=== PATIENT | female | born 1965 | race African-American/Black ===

== ENCOUNTER 2018-06-05 00:20 | Inpatient (IN) | payer OTHER ==
--- NOTE | 2018-06-05 00:27 | PDOC ---
History of Present Illness - General History Source: Patient Exam Limitations: No Limitations - History of Present Illness Initial Comments: 06/05/18 01:15 The patient is a 52 year old female, with a significant past medical history of HTN, prediabetes, and pituitary tumor (diagnosed 34 years ago), who presents to the emergency department with, 1 week of right sided facial numbness. As per patient, her symptoms were sudden onset and is described as decreased sensation , right sided headache, and elevated blood pressure. 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 The patient reports calling a family member who has had a stroke in the past and a nurse from her insurance company who advised her to report to the ED, subsequently the patient notes increased anxiety since that phone call. She denies any recent head trauma or loss of sensation to the extremities. She denies any recent change in vision. She denies recent fevers, chills, or dizziness. She denies recent nausea, vomit, diarrhea or constipation. She denies recent dysuria, frequency, urgency or hematuria. She denies recent chest pain or shortness of breath. Allergies: NKA Social history: Nonsmoker. Denies EtOH use and recreational drug use. Neurologist: Dr. Guo <Charlie Cruz - Last Filed: 06/05/18 01:15> <Izzy Wynne - Last Filed: 06/05/18 03:30> - General Chief Complaint: CVA/TIA Stated Complaint: SYMPTOMS OF STROKE Time Seen by Provider: 06/05/18 00:27 Past History <Charlie Cruz - Last Filed: 06/05/18 01:15> - Suicide/Smoking/Psychosocial Hx Smoking History: Never smoked Have you smoked in the past 12 months: No Information on smoking cessation initiated: No Hx Alcohol Use: No Drug/Substance Use Hx: No <Izzy Wynne - Last Filed: 06/05/18 03:30> - Past Medical History Allergies/Adverse Reactions: Allergies Allergy/AdvReac Type Severity Reaction Status Date / Time No Known Allergies Allergy Verified 06/05/18 00:24 Review of Systems - Review of Systems Able to Perform ROS?: Yes Comments:: 06/05/18 01:16 +GENERAL/CONSTITUTIONAL: Elevated blood pressure.No fever or chills. No weakness. HEAD, EYES, EARS, NOSE AND THROAT: No change in vision. No ear pain or discharge. No sore throat. CARDIOVASCULAR: No chest pain or shortness of breath. RESPIRATORY: No cough, wheezing, or hemoptysis. GASTROINTESTINAL: No nausea, vomiting, diarrhea or constipation. GENITOURINARY: No dysuria, frequency, or change in urination. MUSCULOSKELETAL: No joint or muscle swelling or pain. No neck or back pain. SKIN: No rash +NEUROLOGIC: Right facial numbness. Right sided headache.No vertigo or loss of consciousness ENDOCRINE: No increased thirst. No abnormal weight change. HEMATOLOGIC/LYMPHATIC: No anemia, easy bleeding, or history of blood clots. ALLERGIC/IMMUNOLOGIC: No hives or skin allergy. All Other Systems: Reviewed and Negative <Charlie Cruz - Last Filed: 06/05/18 01:15> *Physical Exam - Vital Signs Last Vital Signs Temp Pulse Resp BP Pulse Ox 98.7 F 78 20 164/73 97 06/05/18 00:24 06/05/18 00:24 06/05/18 00:24 06/05/18 00:24 06/05/18 00:24 - Physical Exam Comments: 06/05/18 01:16 GENERAL: Awake, alert, and fully oriented, in no acute distress HEAD: No signs of trauma EYES: Left eye not blinking simultaneously with right eye. sclera anicteric, conjunctiva clear ENT: Auricles normal inspection, hearing grossly normal, nares patent, oropharynx clear without exudates. Moist mucosa NECK: Normal ROM, supple, no lymphadenopathy, JVD, or masses LUNGS: Breath sounds equal, clear to auscultation bilaterally. No wheezes, and no crackles HEART: Regular rate and rhythm, normal S1 and S2, no murmurs, rubs or gallops ABDOMEN: Soft, nontender, normoactive bowel sounds. No guarding, no rebound. No masses EXTREMITIES: Normal range of motion, no edema. No clubbing or cyanosis. No cords, erythema, or tenderness +NEUROLOGICAL: weaker left eye, able to open when forced closed. Left sided facial palsy preserving the forehead. Normal speech. . No motor deficits in the in face, upper extremities and lower extremities. No pronator drift. Normoreflexic in the upper and lower extremities. SKIN: Warm, Dry, normal turgor, no rashes or lesions noted. <BrynmichellewilliamCharlie - Last Filed: 06/05/18 01:15> - Vital Signs Last Vital Signs Temp Pulse Resp BP Pulse Ox 98.7 F 78 20 164/73 97 06/05/18 00:24 06/05/18 00:24 06/05/18 00:24 06/05/18 00:24 06/05/18 00:24 <Izzy Wynne - Last Filed: 06/05/18 03:30> NIH Stroke Scale - Last Known Well Date/Time & Onset Date Last Known Well: 05/29/18 Time Last Known Well: 00:00 - Initial Evaluation Level of consciousness: Alert Ask patient the month and their age: Answers both correctly Ask patient to open & close eyes; make fist and let go: Obeys both correctly Best gaze (horizontal eye movement): Normal Visual field testing: No visual field loss Facial paresis (Show teeth/raise eyebrows/close eyes tight): Minor paralysis ( flattened nasolabial fold, asymmetry on smiling) Motor Function: Left Arm: Normal Motor Function: Right Arm: Normal (extends arm 90 (or 45) degrees for 10 seconds without drift Motor Function: Left Leg: Normal (extends leg 30 degrees for 5 seconds without drift) Motor Function: Right Leg: Normal (extends leg 30 degrees for 5 seconds without drift) Limb Ataxia: No ataxia Sensory(Use pinprick test arms,legs,trunk,face/side to side): Normal Best language (Describe picture, name items, read sentences): No Aphasia Dysarthria (read several words): Normal articulation Extinction and Inattention: No abnormality - Total Score NIH Stroke Scale Score: 1 <Izzy Wynne - Last Filed: 06/05/18 03:30> Heart Score/ECG Review - History History: Slightly suspicious - Electrocardiogram EKG: Non specific repolarization disturbance - Age Age: 45-65 - Risk Factors Risk Factors Heart Score: Yes Hx Hypertension, Yes Hx Diabetes (borderline HTN/ DM) - Troponin Troponin: </= normal limit - ECG Intrepretation Rhythm: Regular Rhythm - Lancaster Lancaster: Normal - ST and T Early Repolarization: No Non Specific ST-T Wave changes: Yes Flattened T Waves: Yes - ECG Impressions Ischemic Changes: Yes <Izzy Wynne - Last Filed: 06/05/18 03:30> Critical Care Time/MDM Note - Medical Decision Making Note: 06/05/18 00:57 CBC normal <Izzy Wynne - Last Filed: 06/05/18 03:30> Discharge Disposition <Charlie Cruz - Last Filed: 06/05/18 01:15> - Discharge Dispostion Decision to Admit order: Yes <Izzy Wynne - Last Filed: 06/05/18 03:30> - Diagnosis Facial weakness, Facial numbness - Discharge Dispostion Condition at time of disposition: Fair - Referrals Referrals: Juan Luis Guo MD [Primary Care Provider] - - Patient Instructions - Post Discharge Activity Attestations - Attestations 06/05/18 01:16 Documentation prepared by Charlie Cruz, acting as medical associate for Izzy Wynne MD. <Charlie Cruz - Last Filed: 06/05/18 01:15>
[2018-06-05 00:53] LABS: BASO % 1.2 % (0-2.0); EOS % 2.6 % (0-4.5); HEMATOCRIT 38.9 % (32.4-45.2); HEMOGLOBIN 12.5 GM/dL (10.7-15.3); LYMPH % 28.8 % (8-40); MCH 24.4 pg (25.7-33.7); MCHC 32.1 g/dl (32.0-36.0); MEAN CELL VOLUME 75.9 fl (80-96); MEAN PLT VOLUME 9.2 fl (7.5-11.1); NEUT % 61.4 % (42.8-82.8); PLATELET COUNT 247 K/MM3 (134-434); RBC 5.12 M/mm3 (3.60-5.2); RDW 31.5 % (11.6-15.6); WHITE BLOOD COUNT 8.2 K/mm3 (4.0-10.0)
[2018-06-05 00:55] LABS: ADD RBC MORPHOLOGY YES
[2018-06-05 01:32] LABS: INR 0.98 (0.83-1.09); PROTHROMBIN TIME (PATIENT) 11.6 SEC (9.7-13.0)
[2018-06-05 01:46] LABS: ALBUMIN 3.9 g/dl (3.4-5.0); ALK PHOS 82 U/L (45-117); ANION GAP 8 MMOL/L (8-16); BILIRUBIN,TOTAL 0.2 mg/dL (0.2-1); BLOOD UREA NITROGEN 12 mg/dL (7-18); CALCIUM 9.2 mg/dL (8.5-10.1); CHLORIDE 111 mmol/L (98-107); CO2 24 mmol/L (21-32); CREATININE 0.7 mg/dL (0.55-1.3); GLUCOSE,RANDOM 106 mg/dL (74-106); POTASSIUM 3.7 mmol/L (3.5-5.1); SGOT/AST 21 U/L (15-37); SGPT/ALT 28 U/L (13-61); SODIUM 143 mmol/L (136-145); TOT PROT 8.2 g/dl (6.4-8.2)
[2018-06-05 02:07] LABS: ANISOCYTOSIS 2+; MACROCYTOSIS 0; PLATELET ESTIMATE NORMAL
--- NOTE | 2018-06-05 02:16 | PN ---
Teaching Attending Note Name of Resident: Pat Salgado ATTENDING PHYSICIAN STATEMENT I saw and evaluated the patient. I reviewed the resident's note and discussed the case with the resident. I agree with the resident's findings and plan as documented. SUBJECTIVE: Patient is a 52 year old woman with a PMH of HTN, prediabetes, and pituitary tumor (diagnosed 34 years ago), who presents to the ER with 1 week of right sided facial numbness. She says her symptoms were sudden onset and is described as decreased sensation, right sided headache, and elevated blood pressure. She has also noticed numbness of her lips when she is putting on lips stick. 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 The patient reports calling a family member who has had a stroke in the past and a nurse from her insurance company who advised her to report to the ER, subsequently the patient notes increased anxiety since that phone call. She denies any recent head trauma, loss of sensation to the extremities or any recent change in vision. Also has had "intermittent" hypertension which has not been treated. Has not followed up with her MD for the pituitary tumor in 5.5 months. OBJECTIVE: Alert and anxious Vital Signs Period Temp Pulse Resp BP Sys/Carvalho Pulse Ox Last 24 Hr 98.7 F 76-78 20 164/73 97-100 HEENT: No Jaundice, eye redness or discharge, dialted right pupil; ptosis right eye; EOMI. Normocephalic, atraumatic. External ears are normal and hearing is grossly intact. No nasal discharge. Diminished sensation right side of face. Neck: Supple, nontender. No palpable adenopathy or thyromegaly. No JVD Chest: Good effort. Clear to auscultation and percussion. Heart: Regular. No S3, rub or murmur Abdomen: Not distended, soft, nontender and no HSM. No rebound or guarding. Normoactive bowel sounds. Ext: Peripheral pulses intact. No leg edema. Skin: Warm and dry. No petechiae, rash or ecchymosis. Neuro: Alert. Oriented x3. CN 2-12 grossly intact. Diminished sensation right side of face and RUE; DTR are symmetric and plantar reflexes are flexor. Abnormal Lab Results 06/05/18 06/05/18 00:45 00:45 MCV 75.9 L MCH 24.4 L RDW 31.5 H Chloride 111 H ASSESSMENT AND PLAN: 1. CVA - Findings consistent with a left side infarct. Head CT scan does not show any acute pathology. Patient outside the window for TPA. Will get a brain MRI/MRA, carotid doppler, ECHO, fasting lipids, swallow evaluation, PT and Neurology consults. Implement fall precautions and permissive hypertension; treat with aspirin and lipitor. 2. DVT prophylaxis - Lovenox 40 mg SQ q 24 hours. 3. Advance directives - Full code
--- NOTE | 2018-06-05 03:07 | HP ---
CHIEF COMPLAINT: right-sided facial weakness PCP: HISTORY OF PRESENT ILLNESS: Patient is a 52 year old female with past medical history of pituitary tumor ( Prolactinoma) and HTN, presented with sudden-onset right sided facial weakness since one week ago. Patient reported that about one week ago, patient just suddenly felt numb on the right side of her face, accompanied by right-sided headache. The headache was intermittent, but the numbness was persistent. She described it "like having anesthesia during a dental procedure". Today, her co- workers noted that "something was different with her eyes and her face". Patient got worried, and came to the ED. She denies any head trauma, changes in vision, chest pain, SOB, palpitations, dizziness, or weakness. Denies fevers, chills, abdominal pain, diarrhea, constipation. ER course was notable for: (1)Head CT - no acute intracranial pathology (2)BP 164/73 Recent Travel:denies any recent travel PAST MEDICAL HISTORY: -Prolactinoma -Hypertension PAST SURGICAL HISTORY: none Social History: Smoking:nonsmoker Alcohol:occasional EtOH drinker Drugs: denies illicit drug use Family History: Allergies No Known Allergies Allergy (Verified 06/05/18 00:24) HOME MEDICATIONS: REVIEW OF SYSTEMS CONSTITUTIONAL: Absent: fever, chills, diaphoresis, generalized weakness, malaise, loss of appetite, weight change HEENT: Absent: rhinorrhea, nasal congestion, throat pain, throat swelling, difficulty swallowing, mouth swelling, ear pain, eye pain, visual changes CARDIOVASCULAR: Absent: chest pain, syncope, palpitations, irregular heart rate, lightheadedness , peripheral edema RESPIRATORY: Absent: cough, shortness of breath, dyspnea with exertion, orthopnea, wheezing, stridor, hemoptysis GASTROINTESTINAL: Absent: abdominal pain, abdominal distension, nausea, vomiting, diarrhea, constipation, melena, hematochezia GENITOURINARY: Absent: dysuria, frequency, urgency, hesitancy, hematuria, flank pain, genital pain MUSCULOSKELETAL: Absent: myalgia, arthralgia, joint swelling, back pain, neck pain SKIN: Absent: rash, itching, pallor HEMATOLOGIC/IMMUNOLOGIC: Absent: easy bleeding, easy bruising, lymphadenopathy, frequent infections ENDOCRINE: Absent: unexplained weight gain, unexplained weight loss, heat intolerance, cold intolerance NEUROLOGIC: headache, focal weakness or paresthesias Absent:dizziness, unsteady gait, seizure, mental status changes, bladder or bowel incontinence PSYCHIATRIC: Absent: anxiety, depression, suicidal or homicidal ideation, hallucinations. PHYSICAL EXAMINATION Vital Signs - 24 hr 06/05/18 06/05/18 00:24 01:37 Temperature 98.7 F Pulse Rate 78 76 Respiratory 20 Rate Blood Pressure 164/73 O2 Sat by Pulse 97 100 Oximetry (%) GENERAL: Awake, alert, and fully oriented, in no acute distress. HEAD: Normal with no signs of trauma. EYES:PERRLA, EOMI, sclera anicteric, conjunctiva clear. EARS, NOSE, THROAT: Ears normal, nares patent, oropharynx clear without exudates. Moist mucous membranes. NECK: Normal range of motion, supple without lymphadenopathy, JVD, or masses. LUNGS: Breath sounds equal, clear to auscultation bilaterally. HEART: Regular rate and rhythm, normal S1 and S2 without murmur, rub or gallop. ABDOMEN: Soft, nontender, not distended, normoactive bowel sounds. MUSCULOSKELETAL: Normal range of motion at all joints. No bony deformities or tenderness. No CVA tenderness. UPPER EXTREMITIES: 2+ pulses, warm, well-perfused. No cyanosis. No clubbing. No peripheral edema. LOWER EXTREMITIES: 2+ pulses, warm, well-perfused. No calf tenderness. No peripheral edema. NEUROLOGICAL: AAOx3, CN II-XII grossly intact except V and VII; +diminished sensation on right side of face and arm, +Right eye closes tighter than the left eye. Normal speech. Normal gait. PSYCHIATRIC: Cooperative. Good eye contact. Appropriate mood and affect. SKIN: Warm, dry, normal turgor, no rashes or lesions noted, normal capillary refill. Laboratory Results - last 24 hr 06/05/18 06/05/18 00:45 00:45 WBC 8.2 RBC 5.12 Hgb 12.5 Hct 38.9 MCV 75.9 L MCH 24.4 L MCHC 32.1 RDW 31.5 H Plt Count 247 MPV 9.2 Absolute Neuts (auto) 5.0 Neutrophils % 61.4 Lymphocytes % 28.8 Monocytes % 6.0 Eosinophils % 2.6 Basophils % 1.2 Nucleated RBC % 0 Hypochromia 0 Platelet Estimate Normal Polychromasia 0 Poikilocytosis 1+ Anisocytosis 2+ Microcytosis 2+ Macrocytosis 0 Sodium 143 Potassium 3.7 Chloride 111 H Carbon Dioxide 24 Anion Gap 8 BUN 12 Creatinine 0.7 Creat Clearance w eGFR > 60 Random Glucose 106 Calcium 9.2 Total Bilirubin 0.2 AST 21 ALT 28 Alkaline Phosphatase 82 Creatine Kinase 102 Troponin I < 0.02 Total Protein 8.2 Albumin 3.9 ASSESSMENT/PLAN: Patient is a 52 year old female with past medical history of pituitary tumor and HTN, presented with sudden-onset right sided facial weakness since one week ago. #Right-sided facial weakness: likely 2/2 to CVA -Patient reports 1 week history of facial weakness, therefore not a candidate for TPA -Head CT does not show any acute pathology -MRI/MRA of the brain ordered. -Carotid doppler -Echocardiogram -Lipid profile -Aspirin 81mg started -Will treat with Lipitor once with lipid panel results -Physical therapy -Neurology (Dr. Guo) consulted. -Fall precautions #Hypertension -Patient not on any anti-hypertensive medications -Will hold treatment for now -Permissive hypertension #Pituitary adenoma -Continue home medications Cabergoline and Topiramate #FEN -Not on any standing fluids -Encourage increased oral fluid intake -Sodium restricted diet. #Prophylaxis -Lovenox 40mg sq qd #Disposition -full code -admit to obs Visit type - Emergency Visit Emergency Visit: Yes ED Registration Date: 06/05/18 Care time: The patient presented to the Emergency Department on the above date and was hospitalized for further evaluation of their emergent condition. - New Patient This patient is new to me today: Yes Date on this admission: 06/05/18 - Critical Care Critical Care patient: No
[2018-06-05 03:47] LABS: URINE APPEARANCE CLOUDY; URINE BILIRUBIN NEGATIVE (<2.0 mg/dL); URINE COLOR LTYELLOW; URINE GLUCOSE (UA) NEGATIVE (NEGATIVE); URINE KETONE NEGATIVE (NEGATIVE); URINE LEUK ESTERASE TRACE (NEGATIVE); URINE NITRITE NEGATIVE (NEGATIVE); URINE PROTEIN NEGATIVE (NEGATIVE); URINE UROBILINOGEN NEGATIVE mg/dL (0.2-1.0)
[2018-06-05 04:18] LABS: AMORP URATES 2+ /hpf (NONE SEEN)
[2018-06-05] MEDS ORDERED: HEPARIN NA (PORCINE) 5,000 UNITS/ML 1ML VIAL SQ SCH (06:00)
[2018-06-05 07:02] LABS: HEMATOCRIT 37.1 % (32.4-45.2); HEMOGLOBIN 11.6 GM/dL (10.7-15.3); MCH 23.8 pg (25.7-33.7); MCHC 31.4 g/dl (32.0-36.0); MEAN CELL VOLUME 75.8 fl (80-96); MEAN PLT VOLUME 9.2 fl (7.5-11.1); PLATELET COUNT 209 K/MM3 (134-434); RDW 31.4 % (11.6-15.6); WHITE BLOOD COUNT 7.3 K/mm3 (4.0-10.0)
[2018-06-05 07:07] LABS: ALBUMIN 3.5 g/dl (3.4-5.0); ALK PHOS 73 U/L (45-117); ANION GAP 7 MMOL/L (8-16); BILIRUBIN,TOTAL 0.3 mg/dL (0.2-1); BLOOD UREA NITROGEN 10 mg/dL (7-18); CALCIUM 9.4 mg/dL (8.5-10.1); CHLORIDE 114 mmol/L (98-107); CO2 23 mmol/L (21-32); CREATININE 0.6 mg/dL (0.55-1.3); GLUCOSE,RANDOM 98 mg/dL (74-106); MAGNESIUM 2.3 mg/dL (1.8-2.4); POTASSIUM 3.2 mmol/L (3.5-5.1); SGOT/AST 12 U/L (15-37); SGPT/ALT 24 U/L (13-61); SODIUM 143 mmol/L (136-145); TOT PROT 7.2 g/dl (6.4-8.2)
[2018-06-05 09:08] LABS: CHOLESTEROL 174 mg/dL (50-200); HDL CHOLESTEROL 57 mg/dL (40-60); TRIGLYCERIDES 144 mg/dL (0-150)
[2018-06-05] MEDS ORDERED: ASPIRIN 81 MG CHEWABLE TABLETS PO SCH (10:00)
[2018-06-05] MEDS: ENOXAPARIN NA (PORCINE) 40 MG/0.4 ML DISP.SYRIN SQ SCH (10:40)
--- NOTE | 2018-06-05 16:55 | EKG ---
Test Reason : Blood Pressure : / mmHG Vent. Rate : 076 BPM Atrial Rate : 076 BPM P-R Int : 118 ms QRS Dur : 066 ms QT Int : 386 ms P-R-T Axes : 002 -12 -13 degrees QTc Int : 434 ms NORMAL SINUS RHYTHM NONSPECIFIC ST AND T WAVE ABNORMALITY ABNORMAL ECG NO PREVIOUS ECGS AVAILABLE BASELINE ARTIFACT Confirmed by VALENTINE BAIRD, YAA ([id number]) on 06/05/2018 4:54:25 PM Referred By: Confirmed By:YAA GRIJALVA MD
--- NOTE | 2018-06-05 17:46 | HOSP ---
Subjective - Review of Symptoms Subjective: continues to have complete R face numbness for 1 week. notes her smile seems off and when she brushes her teeth she cant control her secretions but is able to eat and drink without difficulty. also when putting on lipstick her lips feel numb. denies Cp, SOB, fever, chills, N/V/C/D. stopped taking her topamax for several months but restarted it a month ago. does not take any other medications. stopped taking cabergoline about 3 months ago because she did not want to take it anymore Current Medications Generic Name Dose Route Start Last Admin Trade Name Fawn PRN Reason Stop Dose Admin Aspirin 81 mg 06/05/18 10:00 06/05/18 10:40 Asa - PO 81 mg DAILY JIM Administration Enoxaparin Sodium 40 mg 06/05/18 10:00 06/05/18 10:40 Lovenox - SQ 40 mg DAILY JIM Administration Last Vital Signs Temp Pulse Resp BP Pulse Ox 98.2 F 68 20 136/82 100 06/05/18 13:50 06/05/18 13:50 06/05/18 13:50 06/05/18 13:50 06/05/18 13:50 General mildly anxious Neuro smile is asymmetrical but no facial droop is appreciated. decreased sensation to the whole R side of the face including forehead. decreased sensation of the RUE. strength is equal in all 4 extremities. sensation intact everywhere else. CBCD WBC 7.3 K/mm3 (4.0-10.0) 06/05/18 06:05 RBC 4.90 M/mm3 (3.60-5.2) 06/05/18 06:05 Hgb 11.6 GM/dL (10.7-15.3) 06/05/18 06:05 Hct 37.1 % (32.4-45.2) 06/05/18 06:05 MCV 75.8 fl (80-96) L 06/05/18 06:05 MCHC 31.4 g/dl (32.0-36.0) L 06/05/18 06:05 RDW 31.4 % (11.6-15.6) H 06/05/18 06:05 Plt Count 209 K/MM3 (134-434) 06/05/18 06:05 MPV 9.2 fl (7.5-11.1) 06/05/18 06:05 CMP Sodium 143 mmol/L (136-145) 06/05/18 06:05 Potassium 3.2 mmol/L (3.5-5.1) L 06/05/18 06:05 Chloride 114 mmol/L (98-107) H 06/05/18 06:05 Carbon Dioxide 23 mmol/L (21-32) 06/05/18 06:05 Anion Gap 7 MMOL/L (8-16) L 06/05/18 06:05 BUN 10 mg/dL (7-18) 06/05/18 06:05 Creatinine 0.6 mg/dL (0.55-1.3) 06/05/18 06:05 Creat Clearance w eGFR > 60 (>60) 06/05/18 06:05 Calcium 9.4 mg/dL (8.5-10.1) 06/05/18 06:05 Total Bilirubin 0.3 mg/dL (0.2-1) 06/05/18 06:05 AST 12 U/L (15-37) L 06/05/18 06:05 ALT 24 U/L (13-61) 06/05/18 06:05 Alkaline Phosphatase 73 U/L (45-117) 06/05/18 06:05 Total Protein 7.2 g/dl (6.4-8.2) 06/05/18 06:05 Albumin 3.5 g/dl (3.4-5.0) 06/05/18 06:05 A/P 52yo F with PMH pituitary tumor, pre-diabetic presented to the ER with R facial numbness x1 week 1. R facial numbness- possible due to topamax? vs other etiology. topamax can cause parathesia but unclear if it presents in this fashion. will check TSH, vitamin B12 and lyme. MRI/MRA negative for CVA. neuro consulted. will hold topamax at this time(was taking it for weight loss?). pt does NOT have HTN noted here in the hospital. although HTN can present with perioral numbness she has not demonstrated HTN here. d/c asa 2. Pituitary tumor- stopped taking medications. encouraged her to follow up with retention specialist to re-start medications 3. pre-DM- random glucose here is fine. cont diet control and f/u with PMD as outpatient 4. obesity- BMI 25. Lifestyle modifications for weight loss 5. DVT ppx- lovenox Physical Examination Vital Signs: Vital Signs Temperature 98.2 F 06/05/18 13:50 Pulse Rate 68 06/05/18 13:50 Respiratory Rate 20 06/05/18 13:50 Blood Pressure 136/82 06/05/18 13:50 O2 Sat by Pulse Oximetry (%) 100 06/05/18 13:50 Labs: CBC, BMP 06/05/18 06:05 06/05/18 06:05
[2018-06-05 19:57] VITALS: BMI 33.5
--- NOTE | 2018-06-06 08:16 | PN ---
Physical Exam: SUBJECTIVE: Patient seen and examined OBJECTIVE: Vital Signs Period Temp Pulse Resp BP Sys/Carvalho Pulse Ox Last 24 Hr 97.6 F-99.2 F 65-88 16-20 136-158/79-95 98-100 GENERAL: The patient is awake, alert, and fully oriented, in no acute distress. HEAD: Normal with no signs of trauma. EYES: PERRL, extraocular movements intact, sclera anicteric, conjunctiva clear. No ptosis. ENT: Ears normal, nares patent, oropharynx clear without exudates, moist mucous membranes. NECK: Trachea midline, full range of motion, supple. LUNGS: Breath sounds equal, clear to auscultation bilaterally, no wheezes, no crackles, no accessory muscle use. HEART: Regular rate and rhythm, S1, S2 without murmur, rub or gallop. ABDOMEN: Soft, nontender, nondistended, normoactive bowel sounds, no guarding, no rebound, no hepatosplenomegaly, no masses. EXTREMITIES: 2+ pulses, warm, well-perfused, no edema. NEUROLOGICAL: Cranial nerves II through XII grossly intact. Normal speech, gait not observed. PSYCH: Normal mood, normal affect. SKIN: Warm, dry, normal turgor, no rashes or lesions noted Laboratory Results - last 24 hr 06/05/18 06/05/18 06:05 19:09 Sodium 143 Potassium 3.2 L Chloride 114 H Carbon Dioxide 23 Anion Gap 7 L BUN 10 Creatinine 0.6 Creat Clearance w eGFR > 60 Random Glucose 98 Calcium 9.4 Phosphorus 4.0 Magnesium 2.3 Total Bilirubin 0.3 AST 12 L ALT 24 Alkaline Phosphatase 73 Total Protein 7.2 Albumin 3.5 Triglycerides 144 Cholesterol 174 Total LDL Cholesterol 108 H HDL Cholesterol 57 Vitamin B12 532 TSH 1.63 Active Medications Generic Name Dose Route Start Last Admin Trade Name Freq PRN Reason Stop Dose Admin Enoxaparin Sodium 40 mg 06/05/18 10:00 06/05/18 10:40 Lovenox - SQ 40 mg DAILY JIM Administration ASSESSMENT/PLAN:
[2018-06-06] MEDS: ENOXAPARIN NA (PORCINE) 40 MG/0.4 ML DISP.SYRIN SQ SCH (10:11)
[2018-06-06] MEDS ORDERED: amLODIPine BESYLATE 5 MG TABLET (FP) PO SCH (12:45)
--- NOTE | 2018-06-06 12:56 | DS ---
Physical Exam: SUBJECTIVE: Patient seen and examined in the AM. She says her facial numbness and weakness is greatly improved from admission OBJECTIVE: Vital Signs Period Temp Pulse Resp BP Sys/Carvalho Pulse Ox Last 24 Hr 98.2 F-99.2 F 65-88 18-20 136-158/79-95 98-100 PHYSICAL EXAM GENERAL: The patient is awake, alert, and fully oriented, in no acute distress. HEAD: Normal with no signs of trauma. EYES: PERRL, extraocular movements intact, sclera anicteric, conjunctiva clear. ENT: Ears normal, nares patent, oropharynx clear without exudates, moist mucous membranes. NECK: Trachea midline, full range of motion, supple. LUNGS: CTA b/l, no rhonchi or wheezes HEART: Regular rate and rhythm, S1, S2 without murmur, rub or gallop. ABDOMEN: Soft, nontender, nondistended, normoactive bowel sounds EXTREMITIES: 2+ pulses, warm, well-perfused, no edema. NEUROLOGICAL: Cranial nerves II through XII intact. 5/5 strength in all extremities. Normal speech, gait not observed. LABS Laboratory Results - last 24 hr 06/05/18 19:09 Vitamin B12 532 TSH 1.63 IMAGING: Head CT: Questionable asmmetric soft tissue prominence in left lateral aspect of sella turcica. Brain MRI: Minimal asymmetric prominence of left side of the pituitary Brain MRA: No evidence of focal stenosis, aneurysm, or avm within central circulation Carotid Doppler: No evidence of stenosis significant for hemodynamic instability HOSPITAL COURSE: Date of Admission:06/05/18 Date of Discharge: 06/06/18 Patient is a 52 year old female with past medical history of pituitary tumor ( Prolactinoma) and HTN, presented with sudden-onset right sided facial weakness since one week ago. Patient reported that about one week ago, patient just suddenly felt numb on the right side of her face, accompanied by right-sided headache. The headache was intermittent, but the numbness was persistent. She described it "like having anesthesia during a dental procedure". Today, her co- workers noted that "something was different with her eyes and her face". Patient got worried, and came to the ED. She denies any head trauma, changes in vision, chest pain, SOB, palpitations, dizziness, or weakness. Denies fevers, chills, abdominal pain, diarrhea, constipation. She was noted to be on outpatient Topiramate which could possibly be causing her numbness. Pt had not taken it in a few days and it was not restarted on admission. CVA r/o imaging was performed as above and was negative other than chronic pituitary tumor which is known. Pt not currently on medications as she states she does not want to take it. Encouraged patient to follow up with neurology and restart her medications. She was deemed medically safe for discharge and instructed to follow up with her PCP within one week. Minutes to complete discharge: 38 Discharge Summary Reason For Visit: NUMBNESS OF FACE,FACIAL WEAKNESS Condition: Good - Instructions Diet, Activity, Other Instructions: You were admitted with numbness and weakness in your face, which has now mostly resolved. Your Topiramate was held as it could be a possible cause of the facial numbness. A head CT and an MRI were done which ruled out a stroke, though your pituitary adenoma was noted on the imaging. It is important that you follow up with your neurologist in the office for management. You were started on a blood pressure medication Norvasc as your blood pressure was noted to be persistently elevated. A test was sent for lyme disease, which is unlikely as you have no known exposure, tick bites or rashes. However the result is not back yet. If the result returns and is positive, then someone will call and inform you as you would then need to be prescribed antibiotics for treatment. You should begin taking Norvasc 5 mg by mouth once daily. This medication has been sent to your pharmacy. Upon discharge you should stop taking the Topiramate. You should continue all of your other home medications as they were prescribed prior to admission to the hospital. You should follow up with your primary care physician within one week for blood pressure checks. They can decide whether to continue or change the new blood pressure medication. You should follow up with your neurologist within one week of discharge as well. Follow up with your writing center director for further treatment of your pituitary If you have worsening numbness or weakness in your face, arms, or legs, any loss of consciousness, or severe headache, you should call your doctor or return to the emergency department immediately. Referrals: Juan Luis Guo MD [Primary Care Provider] - Disposition: HOME - Home Medications Comprehensive Discharge Medication List: Ambulatory Orders Latanoprost 0.005% Eye Drops [Xalatan 0.005% Eye Drops -] 1 drop OU HS 06/05/18 Amlodipine Besylate [Norvasc -] 5 mg PO DAILY #30 tablet 06/06/18 This patient is new to me today: No Emergency Visit: Yes ED Registration Date: 06/05/18 Care time: The patient presented to the Emergency Department on the above date and was hospitalized for further evaluation of their emergent condition. Critical Care patient: No - Discharge Referral Referred to [facility] Med P.C.: No
--- NOTE | 2018-06-06 13:03 | PN ---
Teaching Attending Note Name of Resident: Nael Leonard ATTENDING PHYSICIAN STATEMENT I saw and evaluated the patient. I reviewed the resident's note and discussed the case with the resident. I agree with the resident's findings and plan as documented. SUBJECTIVE:states numbness has improved but persists around the lips. no longer experiencing in her arm. denies CP, SOB, fever, chills, N/V/C/D or gait difficulties OBJECTIVE: Last Vital Signs Temp Pulse Resp BP Pulse Ox 98.3 F 73 18 140/90 98 06/06/18 05:27 06/06/18 10:00 06/06/18 10:00 06/06/18 10:00 06/05/18 19:00 General NAD Neuro improved sensation on top half of face. decreased in the L buccal area and around the lips. motor strength is equal throughout ASSESSMENT AND PLAN: 52yo F with PMH pituitary tumor, pre-diabetic presented to the ER with R facial numbness x1 week 1. R facial numbness- possible due to topamax. spoke with Dr Palacios who states this is most likely due to topamax use. clinically improving. workup all negatiave. can f/u with neuro as outpatient 2. HTN- several elevated readings overnight. asymptomatic (numbness was not worse). will start norvasc 5mg. educated on low salt diet and excercise. f/u with PMD this week for repeat BP. 3. Pituitary tumor- stopped taking medications. encouraged her to follow up with value stream leader to discuss re-starting medications 4. pre-DM- random glucose here is fine. cont diet control and f/u with PMD as outpatient 5. obesity- BMI 25. Lifestyle modifications for weight loss 6. DVT ppx- lovenox 7. d/c home
[2018-06-06 14:24] VITALS: BP 155/89; PULSE 78; TEMP 98.4
== END 2018-06-06 14:38 | disposition home or self-care (01) | DRG 93 ==
LOC: JER 00:20 → JERBED 02:01 → J6S 19:44
PROVIDERS: ADMIT Internal Medicine; ATTEND Internal Medicine
DX: R20.0 Anesthesia of skin (principal); T42.6X5A Adverse effect of other antiepileptic and sedative-hypnotic drugs, initial encounter; I10 Essential (primary) hypertension; R73.03 Prediabetes; D35.2 Benign neoplasm of pituitary gland; E66.9 Obesity, unspecified; Z68.25 Body mass index [BMI] 25.0-25.9, adult
CPT/HCPCS: 36415; 70450-TC; 70544-TC; 70551-TC; 71046-TC-FY; 80053; 80061; 81003; 81015; 82550; 82607; 83721; 83735; 84100; 84443; 84484; 85025; 85027; 85610; 86618; 93005; 93010; 93880-TC; 99285-25

== ENCOUNTER 2018-06-22 01:25 | Emergency (ER) | payer OTHER ==
[2018-06-22 02:08] VITALS: BP 133/98; PULSE 98; TEMP 97.8; BMI 33.1
--- NOTE | 2018-06-22 02:52 | PDOC ---
History of Present Illness - General Chief Complaint: Headache Stated Complaint: PAIN, HEAD/NECK,RX REFILL Time Seen by Provider: 06/22/18 02:52 Past History - Past Medical History Allergies/Adverse Reactions: Allergies Allergy/AdvReac Type Severity Reaction Status Date / Time iodine Allergy Verified 06/22/18 02:09 Home Medications: Ambulatory Orders Latanoprost 0.005% Eye Drops [Xalatan 0.005% Eye Drops -] 1 drop OU HS 06/05/18 Amlodipine Besylate [Norvasc -] 5 mg PO DAILY #30 tablet 06/06/18 Topiramate [Topamax] 50 mg PO BID 06/22/18 COPD: No Diabetes: Yes (borderline HTN/DM) HTN: Yes - Suicide/Smoking/Psychosocial Hx Smoking History: Never smoked Have you smoked in the past 12 months: No Information on smoking cessation initiated: No Hx Alcohol Use: No Drug/Substance Use Hx: No Substance Use Type: None Hx Substance Use Treatment: No *Physical Exam - Vital Signs Last Vital Signs Temp Pulse Resp BP Pulse Ox 97.8 F 98 H 20 133/98 100 06/22/18 01:30 06/22/18 01:30 06/22/18 01:30 06/22/18 01:30 06/22/18 01:30 *DC/Admit/Observation/Transfer - Referrals Referrals: Arnulfo Quijano [Primary Care Provider] - - Patient Instructions - Post Discharge Activity
--- NOTE | 2018-06-22 03:55 | PDOC ---
History of Present Illness - General Chief Complaint: Headache Stated Complaint: PAIN, HEAD/NECK,RX REFILL Time Seen by Provider: 06/22/18 02:52 History Source: Patient Exam Limitations: No Limitations - History of Present Illness Initial Comments: 06/22/18 03:48 Best Contact: Dr. Guo/neurology PMD: Dr. Arnulfo Quijano/[facility] Dr. Logan/[facility] Pmhx: HTN, PreDM, Asthma/never intubated or recent admission, age 18 yo: Pituatary adenoma Pshx: Umbilical hernia with mesh, bilateral bunionectomy, at 17 years old and left breast lumpectomy: Benign Allergies: Iodine/short of breath Social Hx: Cigarettes/ 0 Alcohol/ 0 Drugs/0 LMP:N/A 52-year-old female presents to the emergency department requesting for a prescription refill on Cabergoline .5mg 1/2 tablet twice a week. Patient states she's had a left sided posterior headache radiating to the left side of her neck 2 weeks without fever, chills, dizziness, lightheadedness, facial pains, earache, sore throat, neck stiffness, back pains, chest pain, shortness of breath, abdominal pains, Durga numbness or tingling sensation. Patient states she saw her center medical director yesterday afternoon and asked him for a refill on the medication which her center medical director denied. [facility] states he will have to speak to the patient's neurologist prior to writing the prescription for her. Patient states since her center medical director did not raise of the medication, she decided to come to the ER for medication refill prescription. I informed the patient that I cannot write that medication and she needs to follow -up with her neurologist and center medical director for the prescription refill. Patient states she's had this type of headache on and off for years due to her pituitary adenoma. Patient states she is under the care of her center medical director. Patient states the pain is very low at the moment but only came to the ER for her medication refill that her neurologist and center medical director did not fill. Past History - Past Medical History Allergies/Adverse Reactions: Allergies Allergy/AdvReac Type Severity Reaction Status Date / Time iodine Allergy Verified 06/22/18 02:09 Home Medications: Ambulatory Orders Latanoprost 0.005% Eye Drops [Xalatan 0.005% Eye Drops -] 1 drop OU HS 06/05/18 Amlodipine Besylate [Norvasc -] 5 mg PO DAILY #30 tablet 06/06/18 Topiramate [Topamax] 50 mg PO BID 06/22/18 COPD: No Diabetes: Yes (borderline HTN/DM) HTN: Yes - Suicide/Smoking/Psychosocial Hx Smoking History: Never smoked Have you smoked in the past 12 months: No Information on smoking cessation initiated: No Hx Alcohol Use: No Drug/Substance Use Hx: No Substance Use Type: None Hx Substance Use Treatment: No Review of Systems - Review of Systems Able to Perform ROS?: Yes Comments:: 06/22/18 03:55 CONSTITUTIONAL: Absent: fever, chills, diaphoresis, generalized weakness, malaise, loss of appetite HEENT: Absent: rhinorrhea, nasal congestion, throat pain, throat swelling, difficulty swallowing, mouth swelling, ear pain, eye pain, visual Changes CARDIOVASCULAR: Absent: chest pain, loss of consciousness, palpitations, irregular heart rate, peripheral edema RESPIRATORY: Absent: cough, shortness of breath, dyspnea with exertion, orthopnea, wheezing, stridor, hemoptysis GASTROINTESTINAL: Absent: abdominal pain, abdominal distension, nausea, vomiting, diarrhea, constipation, melena, hematochezia GENITOURINARY: Absent: dysuria, frequency, urgency, hesitancy, hematuria, flank pain, genital pain MUSCULOSKELETAL: Absent: myalgia, arthralgia, joint swelling SKIN: Absent: rash, itching, pallor HEMATOLOGIC/IMMUNOLOGIC: Absent: easy bleeding, easy bruising, lymphadenopathy, frequent infections ENDOCRINE: Absent: unexplained weight gain, unexplained weight loss, heat intolerance, cold intolerance NEUROLOGIC: +left posterior don/left sided neck pain Absent: focal weakness or paresthesias, dizziness, unsteady gait, seizure, mental status changes, bladder or bowel incontinence PSYCHIATRIC: Absent: anxiety, depression, suicidal or homicidal ideation, hallucinations. Is the patient limited Cuban proficient: No *Physical Exam - Vital Signs Last Vital Signs Temp Pulse Resp BP Pulse Ox 97.8 F 98 H 20 133/98 100 06/22/18 01:30 06/22/18 01:30 06/22/18 01:30 06/22/18 01:30 06/22/18 01:30 - Physical Exam Comments: 06/22/18 03:56 GENERAL: Well developed, well nourished. Awake and alert. No acute distress. HEENT: Normocephalic, atraumatic. PERRLA, EOMI. No conjunctival pallor. Sclera are non- icteric. Moist mucous membranes. Oropharynx is clear. NECK: Supple. Full ROM. No JVD. Carotid pulses 2+ and symmetric, without bruits. No thyromegaly. No lymphadenopathy. CARDIOVASCULAR: Regular rate and rhythm. No murmurs, rubs, or gallops. Distal pulses are 2+ and symmetric. PULMONARY: No evidence of respiratory distress. Lungs clear to auscultation bilaterally. No wheezing, rales or rhonchi. ABDOMINAL: Soft. Non-tender. Non-distended. No rebound or guarding. No organomegaly. Normoactive bowel sounds. MUSCULOSKELETAL Normal range of motion at all joints. No bony deformities or tenderness. No CVA tenderness. EXTREMITIES: No cyanosis. No clubbing. No edema. No calf tenderness. SKIN: Warm and dry. Normal capillary refill. No rashes. No jaundice. NEUROLOGICAL: Alert, awake, appropriate. Cranial nerves 2-12 intact. No deficits to light touch and temperature in face, upper extremities and lower extremities. No motor deficits in the in face, upper extremities and lower extremities. Normoreflexic in the upper and lower extremities. Normal speech. Toes are down- going bilaterally. Gait is normal without ataxia. PSYCHIATRIC: Cooperative. Good eye contact. Appropriate mood and affect. ED Treatment Course - RADIOLOGY Radiograph Interpretation: 06/22/18 03:56 Patient adamantly refuses a CAT scan. Patient states she had an MRI 2 weeks ago. Progress Note - Progress Note Progress Note: 0354hrs: Called DR. Guo/[phone] Patient is comfortable in the emergency department. Patient was not wincing in any type of pain. Patient states she only wants a prescription refill and feels fine now. *DC/Admit/Observation/Transfer Diagnosis at time of Disposition: Encounter for medication refill Headache Qualifiers: Headache type: other headache syndrome Qualified Code(s): G44.89 - Other headache syndrome - Discharge Dispostion Disposition: HOME Condition at time of disposition: Stable Decision to Admit order: No - Referrals Referrals: Arnulfo Quijano [Primary Care Provider] - Juan Luis Guo MD [Staff Physician] - - Patient Instructions Printed Discharge Instructions: DI for Headache Additional Instructions: Follow-up with Dr. Guo, your neurologist. Return back to the emergency department for severe/persistent or worsening symptoms. You had your MRI 2 weeks ago and today declined any images/CAT scan. You were advised to follow with your neurologist for prescription refill/ Cabergoline .5mg take 1/2 pill twice a week. - Post Discharge Activity
== END 2018-06-22 04:28 | disposition home or self-care (01) ==
LOC: JER 01:25
DX: G44.89 Other headache syndrome (principal); M54.2 Cervicalgia; I10 Essential (primary) hypertension; E11.9 Type 2 diabetes mellitus without complications
CPT/HCPCS: 99281-25

== ENCOUNTER 2018-11-20 16:50 | Observation (INO) | payer OTHER ==
--- NOTE | 2018-11-20 17:44 | PDOC ---
History of Present Illness - General Chief Complaint: Lightheaded Stated Complaint: DIZZINESS Time Seen by Provider: 11/20/18 17:28 - History of Present Illness Initial Comments: 11/20/18 17:43 Ms. Castelan is a 53 yo female w/ pmh of HTN, Asthma, PreDM, and known tumor on pituitary gland who presents for evaluation of chest pain and dizziness. 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 Patient then reports she went to work and began to have lightheaded feeling that progressed to include the feeling like the world was spinning. Ms. Castelan reports she became nauseated at this time and elected to present to ER. Patient also reports she has had a 1 week history of "hemorrhoids acting up" due to straining from constipation and has noticed blood mixed in with stool during this time period. The patient denies shortness of breath, and headache. Denies fever, chills, nausea, vomit, and diarrhea. Denies dysuria, frequency, urgency and hematuria. Past History - Past Medical History Allergies/Adverse Reactions: Allergies Allergy/AdvReac Type Severity Reaction Status Date / Time iodine Allergy Verified 11/20/18 16:51 Home Medications: Ambulatory Orders Latanoprost 0.005% Eye Drops [Xalatan 0.005% Eye Drops -] 1 drop OU HS 06/05/18 Amlodipine Besylate [Norvasc -] 5 mg PO DAILY #30 tablet 06/06/18 Topiramate [Topamax] 50 mg PO BID 06/22/18 Cabergoline 0.25 mg PO BID 11/20/18 Cetirizine HCl [Zyrtec -] 10 mg PO DAILY PRN 11/20/18 COPD: No Diabetes: Yes (borderline HTN/DM) HTN: Yes - Immunization History Immunization Up to Date: Yes - Suicide/Smoking/Psychosocial Hx Smoking History: Never smoked Have you smoked in the past 12 months: No Information on smoking cessation initiated: No Hx Alcohol Use: No Drug/Substance Use Hx: No Substance Use Type: None Hx Substance Use Treatment: No Review of Systems - Review of Systems Comments:: 11/20/18 17:44 GENERAL/CONSTITUTIONAL: No fever or chills. No weakness. HEAD, EYES, EARS, NOSE AND THROAT: No change in vision. No ear pain or discharge. No sore throat. CARDIOVASCULAR: +Transient chest pain as described. No shortness of breath RESPIRATORY: No cough, wheezing, or hemoptysis. GASTROINTESTINAL: +Current nausea. 1 week of straining stools with blood noted. No vomiting or diarrhea. GENITOURINARY: No dysuria, frequency, or change in urination. MUSCULOSKELETAL: No joint or muscle swelling or pain. No neck or back pain. SKIN: No rash NEUROLOGIC: +Dizziness as described. No headache, loss of consciousness, or change in strength/sensation. ENDOCRINE: No increased thirst. No abnormal weight change HEMATOLOGIC/LYMPHATIC: No anemia, easy bleeding, or history of blood clots. ALLERGIC/IMMUNOLOGIC: No hives or skin allergy. *Physical Exam - Vital Signs Last Vital Signs Temp Pulse Resp BP Pulse Ox 97.9 F 78 16 144/80 100 11/20/18 16:51 11/20/18 16:51 11/20/18 16:51 11/20/18 16:51 11/20/18 16:51 - Physical Exam Comments: 11/20/18 17:44 GENERAL: Awake, alert, and fully oriented, in no acute distress HEAD: No signs of trauma, normocephalic, atraumatic EYES: PERRLA, EOMI, sclera anicteric, conjunctiva clear ENT: Auricles normal inspection, hearing grossly normal, nares patent, oropharynx clear without exudates. Moist mucosa NECK: Normal ROM, supple, no lymphadenopathy, JVD, or masses LUNGS: No distress, speaks full sentences, clear to auscultation bilaterally HEART: Regular rate and rhythm, normal S1 and S2, no murmurs, rubs or gallops, peripheral pulses normal and equal bilaterally. ABDOMEN: Soft, nontender, normoactive bowel sounds. No guarding, no rebound. No masses EXTREMITIES: Normal inspection, Normal range of motion, no edema. No clubbing or cyanosis. NEUROLOGICAL: Cranial nerves II through XII grossly intact. Normal speech, normal gait, no focal sensorimotor deficits SKIN: Warm, Dry, normal turgor, no rashes or lesions noted. RECTAL: +Hemorrhoids noted surrounding rectum, no blood noted on rectal exam Moderate Sedation - Procedure Monitoring Vital Signs: Procedure Monitoring Vital Signs Temperature 97.9 F 11/20/18 16:51 Pulse Rate 78 11/20/18 16:51 Respiratory Rate 16 11/20/18 16:51 Blood Pressure 144/80 11/20/18 16:51 O2 Sat by Pulse Oximetry (%) 100 11/20/18 16:51 Heart Score/ECG Review - History History: Highly suspicious - Electrocardiogram EKG: Non specific repolarization disturbance - Age Age: 45-65 - Risk Factors Risk Factors Heart Score: Yes Hx Hypertension, Yes Hx Diabetes, Yes Positive family hx of cardiac disease Based on the list above the patient has:: >/=3 risk factors or Hx atherosclerotic disease - Troponin Troponin: </= normal limit - Score Heart Score - Total: 6 ED Treatment Course - LABORATORY CBC & Chemistry Diagram: 11/20/18 18:06 11/20/18 18:42 Medical Decision Making - Medical Decision Making 11/20/18 21:00 Ms. Castelan is a 53 yo female w/ pmh as described who presents for evaluation of symptoms concerning for cardiac process vs. anemia vs. electrolyte imbalance. Patient evaluated with labs as below, EKG, Head CT, UA, and SFOB. Patient noted to have mild UTI as below and treated with 1g rocephin. Patient SFOB positive. Head CT negative. Given concerning history and patient family history with non- specific t-waves on EKG as well as positive SFOB, decision made to bring patient in for further cardiac evaluation. Admitting patient to hospitalist. Laboratory Results - last 24 hr 11/20/18 11/20/18 11/20/18 18:06 18:06 18:42 WBC 10.4 H RBC 4.42 Hgb 13.3 Hct 39.0 MCV 88.3 MCH 30.1 D MCHC 34.1 RDW 14.6 D Plt Count 251 D MPV 9.5 Absolute Neuts (auto) 8.7 H Neutrophils % 83.1 H D Lymphocytes % 12.5 D Monocytes % 3.4 L Eosinophils % 0.5 D Basophils % 0.5 Nucleated RBC % 0 Sodium 138 Potassium 3.7 Chloride 106 Carbon Dioxide 22 Anion Gap 10 BUN 13 Creatinine 0.9 Creat Clearance w eGFR 65.25 Random Glucose 144 H Calcium 9.0 Total Bilirubin 0.2 AST 17 ALT 22 Alkaline Phosphatase 95 Creatine Kinase 119 Troponin I < 0.02 Total Protein 8.2 Albumin 3.9 TSH 1.67 Urine Color Urine Appearance Urine pH Ur Specific [place] Urine Protein Urine Glucose (UA) Urine Ketones Urine Blood Urine Nitrite Urine Bilirubin Urine Urobilinogen Ur Leukocyte Esterase Urine WBC (Auto) Urine RBC (Auto) Urine Casts (Auto) U Epithel Cells (Auto) Urine Bacteria (Auto) Stool Occult Blood Positive 11/20/18 18:50 WBC RBC Hgb Hct MCV MCH MCHC RDW Plt Count MPV Absolute Neuts (auto) Neutrophils % Lymphocytes % Monocytes % Eosinophils % Basophils % Nucleated RBC % Sodium Potassium Chloride Carbon Dioxide Anion Gap BUN Creatinine Creat Clearance w eGFR Random Glucose Calcium Total Bilirubin AST ALT Alkaline Phosphatase Creatine Kinase Troponin I Total Protein Albumin TSH Urine Color Yellow Urine Appearance Turbid Urine pH 8.0 Ur Specific [place] 1.011 Urine Protein Negative Urine Glucose (UA) Negative Urine Ketones Negative Urine Blood Negative Urine Nitrite Negative Urine Bilirubin Negative Urine Urobilinogen 0.2 Ur Leukocyte Esterase Trace Urine WBC (Auto) 3 Urine RBC (Auto) 1 Urine Casts (Auto) 0 U Epithel Cells (Auto) 2.0 Urine Bacteria (Auto) 68.4 Stool Occult Blood *DC/Admit/Observation/Transfer Diagnosis at time of Disposition: Dizziness, Rectal bleed - Discharge Dispostion Decision to Admit order: Yes - Referrals Referrals: ON STAFF,NOT [Primary Care Provider] - - Patient Instructions - Post Discharge Activity
[2018-11-20] MEDS ORDERED: MECLIZINE HCL 25 MG TABLET (FP) PO ONE (18:08)
--- NOTE | 2018-11-20 18:46 | PDOC ---
Attending Attestation - HPI HPI: 11/20/18 18:49 The patient is a 53-year-old female with a past medical history significant for HTN, known tumor of the pituitary gland, pre-DM, and Asthma (never been intubated) presents to the emergency department with chest pain and dizziness. The patient reports she woke up at her usual state of health. The patient reports while at work she had a near syncopal episode associated with intermittent chest discomfort. The patient described the discomfort as severe sharp chest pain, denies any exertional factor. Denies shortness of breath. No prior stress test or echo. The patient reports a family history of [place]. Allergies: Iodine. Surgical history: Umbilical hernia with mesh, bilateral bunionectomy, at 17 years old and left breast lumpectomy: Benign Neurologist: Dr. Guo. PMD: Dr. Arnulfo Quijano. bumper operator: Dr. Logan. Family history: [place] (brother) - Physicial Exam PE: 11/20/18 18:50 GENERAL: Awake, alert, and fully oriented, in no acute distress HEAD: No signs of trauma EYES: PERRLA, EOMI, sclera anicteric, conjunctiva clear ENT: Auricles normal inspection, hearing grossly normal, nares patent.. Moist mucosa NECK: Normal ROM, supple, no JVD, or masses LUNGS: Breath sounds equal, clear to auscultation bilaterally. No wheezes, and no crackles HEART: Regular rate and rhythm, normal S1 and S2, no murmurs, rubs or gallops ABDOMEN: Soft, nontender. No guarding, no rebound. No masses EXTREMITIES: Normal range of motion, no edema. No clubbing or cyanosis. No cords, erythema, or tenderness NEUROLOGICAL: Cranial nerves II through XII grossly intact. Normal speech. SKIN: Warm, Dry, normal turgor, no rashes or lesions noted. - Medical Decision Making 11/20/18 18:50 Documentation prepared by Maru Hector, acting as front office medical assistant for Jose Solorzano MD. <Maru Hector - Last Filed: 11/20/18 18:49> - Resident Resident Name: Sukumar Davey - ED Attending Attestation I have performed the following: I have examined & evaluated the patient, The case was reviewed & discussed with the resident, I agree w/resident's findings & plan, Exceptions are as noted - Medical Decision Making 11/20/18 18:46 A portion of this note was documented by scribe services under my direction. I have reviewed the details of the note, within reason, and agree with the documentation with the following case summary and management plan written by me. Patient treated in the ED. Nursing notes are reviewed and incorporated into the medical decision-making. Vital signs reviewed. Peripheral IV access obtained by the nurse, laboratory studies are drawn and sent, reviewed and interpreted by myself. Vital Signs Temp Pulse Resp BP Pulse Ox 97.9 F 78 16 144/80 100 11/20/18 16:51 11/20/18 16:51 11/20/18 16:51 11/20/18 16:51 11/20/18 16:51 53-year-old female with past medical history of hypertension, asthma, prediabetes, pituitary gland tumor presents with chest pain and lightheadedness. The patient reported that she woke up this morning in her usual state health. While she was working, the patient felt near syncopal and had some intermittent chest discomfort described as several seconds of sharp chest pains. No shortness of breath. Nonexertional. However, the patient has strong family history of cardiac disease including a brother with an [place]. Never had a stress test or an echocardiogram. Denies smoking history. Given the circumstances, the patient will need a cardiac workup. This certainly could be atypical chest pain but given strong family history, and no wharf hand to follow up with, the patient should be admitted to the hospital for further management. <Jose Solorzano - Last Filed: 11/20/18 19:00> Heart Score/ECG Review #1 ECG reviewed & interpreted by me at: 17:00 11/20/18 19:00 NSR 75, nonspecific T wave abnormality, T wave flat III, avL, TWI V2, no std/melissa , QTC 426 msec <Jose Solorzano - Last Filed: 11/20/18 19:00>
[2018-11-20 18:49] LABS: BASO % 0.5 % (0-2.0); EOS % 0.5 % (0-4.5); HEMOGLOBIN 13.3 GM/dL (10.7-15.3); LYMPH % 12.5 % (8-40); MCH 30.1 pg (25.7-33.7); MCHC 34.1 g/dl (32.0-36.0); MEAN CELL VOLUME 88.3 fl (80-96); MEAN PLT VOLUME 9.5 fl (7.5-11.1); MONO % 3.4 % (3.8-10.2); NEUT % 83.1 % (42.8-82.8); PLATELET COUNT 251 K/MM3 (134-434); RBC 4.42 M/mm3 (3.60-5.2); RDW 14.6 % (11.6-15.6); WHITE BLOOD COUNT 10.4 K/mm3 (4.0-10.0)
[2018-11-20] MEDS ORDERED: MECLIZINE HCL 25 MG TABLET (FP) ONE (18:54)
[2018-11-20 19:03] LABS: URINE APPEARANCE TURBID; URINE BACTERIA 68.4 /hpf (NEGATIVE); URINE BILIRUBIN NEGATIVE (<2.0 mg/dL); URINE CASTS 0 /hpf (0-8); URINE COLOR YELLOW; URINE GLUCOSE (UA) NEGATIVE (NEGATIVE); URINE KETONE NEGATIVE (NEGATIVE); URINE LEUK ESTERASE TRACE (NEGATIVE); URINE NITRITE NEGATIVE (NEGATIVE); URINE PROTEIN NEGATIVE (NEGATIVE); URINE RBC 1 /hpf (0-4); URINE UROBILINOGEN 0.2 mg/dL (0.2-1.0); URINE WBC 3 /hpf (0-5)
[2018-11-20 19:32] LABS: ALBUMIN 3.9 g/dl (3.4-5.0); ALK PHOS 95 U/L (45-117); ANION GAP 10 MMOL/L (8-16); BILIRUBIN,TOTAL 0.2 mg/dL (0.2-1); BLOOD UREA NITROGEN 13 mg/dL (7-18); CHLORIDE 106 mmol/L (98-107); CO2 22 mmol/L (21-32); CREATININE 0.9 mg/dL (0.55-1.3); GLUCOSE,RANDOM 144 mg/dL (74-106); POTASSIUM 3.7 mmol/L (3.5-5.1); SGOT/AST 17 U/L (15-37); SGPT/ALT 22 U/L (13-61); SODIUM 138 mmol/L (136-145); TOT PROT 8.2 g/dl (6.4-8.2)
[2018-11-20] MEDS ORDERED: CEFTRIAXONE 1,000 MG in DEXTROSE 5%-WATER - 50 ML IVPB ONE (19:35)
[2018-11-20] MEDS ORDERED: CEFTRIAXONE 1 GM/50 ML BAG ONE (20:40)
[2018-11-20] MEDS ORDERED: LORATADINE 10 MG TABLET PO PRN (23:55)
--- NOTE | 2018-11-21 00:12 | HP ---
Admitting History and Physical - Admission Chief Complaint: dizziness. History of Present Illness: 53 yo f with pmhx of HTN, Asthma, PreDM, and known tumor on pituitary gland who presents for evaluation of chest pain and dizziness. 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 Patient then reports she went to work and began to have lightheaded feeling that progressed to include the feeling like the room was spinning. She endorses nausea which prompted trip to ER. Of note she states that she did not at this time and elected to present to ER. Patient also reports she has had a 1 week history of "hemorrhoids acting up" due to straining from constipation and has noticed blood mixed in with stool during this time period. She also endorses increased frequency in urination with some dysuria. Denies ROSARIO, SOB, abdominal pain, fever or chills. History Source: Patient Limitations to Obtaining History: No Limitations - Past Medical History Cardiovascular: Yes: HTN Pulmonary: Yes: Asthma Gastrointestinal: Yes: Hemorrhoids Heme/Onc: Yes: Other (Pituitary adenoma) - Past Surgical History Past Surgical History: Yes: Hernia Repair - Smoking History Smoking history: Never smoked Have you smoked in the past 12 months: No - Alcohol/Substance Use Hx Alcohol Use: No History of Substance Use: reports: None - Social History Usual Living Arrangement: Yes: With Spouse ADL: Independent History of Recent Travel: No Home Medications - Allergies Allergies/Adverse Reactions: Allergies Allergy/AdvReac Type Severity Reaction Status Date / Time iodine Allergy Verified 11/20/18 16:51 - Home Medications Home Medications: Ambulatory Orders Latanoprost 0.005% Eye Drops [Xalatan 0.005% Eye Drops -] 1 drop OU HS 06/05/18 Amlodipine Besylate [Norvasc -] 5 mg PO DAILY #30 tablet 06/06/18 Topiramate [Topamax] 50 mg PO BID 06/22/18 Cabergoline 0.25 mg PO WEEKLY 11/20/18 Cetirizine HCl [Zyrtec -] 10 mg PO DAILY PRN 11/20/18 EPINEPHrine [Primatene Mist] 11.7 gm IH TID PRN 11/21/18 Family Disease History - Family Disease History Family Disease History: Heart Disease: Father (ESRD), Brother (ESRD), Sister, Other: Father, Brother Review of Systems - Review of Systems Constitutional: denies: Chills, Diaphoresis, Night Sweats Eyes: denies: Blurred Vision, Photophobia HENT: denies: Difficult Swallowing Cardiovascular: reports: Chest Pain Respiratory: denies: SOB, SOB on Exertion, Wheezing Genitourinary: denies: Burning, Discharge, Dysuria Neurological: reports: Dizziness Endocrine: denies: Excessive Sweating, Flushing, Increased Thirst Physical Examination Vital Signs: Vital Signs Temperature 97.9 F 11/20/18 16:51 Pulse Rate 78 11/20/18 16:51 Respiratory Rate 16 11/20/18 16:51 Blood Pressure 144/80 11/20/18 16:51 O2 Sat by Pulse Oximetry (%) 100 11/20/18 16:51 Constitutional: Yes: Well Nourished, No Distress, Calm Eyes: Yes: Conjunctiva Clear, EOM Intact HENT: Yes: Atraumatic, Normocephalic Neck: Yes: Supple, Trachea Midline Cardiovascular: Yes: Regular Rate and Rhythm, S1, S2. No: Gallop, Murmur, Rub Respiratory: Yes: Regular, CTA Bilaterally. No: Accessory Muscle Use Gastrointestinal: Yes: Normal Bowel Sounds, Soft Extremities: No: Calf Tenderness, Cold, Cyanosis Edema: No Peripheral Pulses: Left Doralis Pedis: 2+, Right Dorsalis Pedis: 2+ Neurological: Yes: Alert, Oriented, Cran Nerves II-XII Intact. No: Unsteady Gait, Weakness ...Motor Strength: WNL Psychiatric: Yes: Alert, Oriented Labs: CBC, BMP 11/20/18 18:06 11/20/18 18:42 Problem List - Problems (1) Dizziness Assessment/Plan: pre-syncopal episode unclear etiology possible UTI * Telemetry for observation. * Orthostatic Vital signs. * Echo pending. * CT head was negative for acute pathology. * repeat EKG in AM * Cardiology consult. * Meclizine PRN * Zofran for nausea. (2) Rectal bleed Assessment/Plan: most likely hemorrhoidal bleed. * Monitor H/H * repeat CBC in Am (3) Chest pain Assessment/Plan: non-anginal chest pain. * Low pre-test prob. for ACS * trend trops. * Cardiology consult. * monitor on telemetry. (4) Pituitary adenoma Assessment/Plan: * Continue cabergoline * Topiramate 50 mg PO BID (5) DVT prophylaxis Assessment/Plan: lovenox SQ 40 mg Visit type - Emergency Visit Emergency Visit: Yes ED Registration Date: 11/20/18 Care time: The patient presented to the Emergency Department on the above date and was hospitalized for further evaluation of their emergent condition. - New Patient This patient is new to me today: Yes Date on this admission: 11/22/18 - Critical Care Critical Care patient: No
--- NOTE | 2018-11-21 00:38 | PN ---
Teaching Attending Note Name of Resident: Cristhian Dao ATTENDING PHYSICIAN STATEMENT I saw and evaluated the patient. I reviewed the resident's note and discussed the case with the resident. I agree with the resident's findings and plan as documented. SUBJECTIVE: Seen and examined; please refer to resident note for further historical documentation. Briefly, this is a 53 y/o female presenting to the hospital with a CC of CP and dizziness found to have a positive FOBT (history of hemorrhoids acting up due to straining from constipation; has seen some regular stool mixed with BRBPR). She denies true syncope, SOB, etc. 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 No palpitations. Sent home from work. 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 Her primary was setting her up to see a security incident response specialist but she has not made any appointment yet. She is found to have a borderline positive UA and does admit to very increased frequency; was given empiric ceftriaxone in the ER. 10 sys ROS done and negative aside from HPI PMH (asthma, HTN, preDM, known pituitary adenoma [prolactinoma dx 30+ years ago] ), PSH, Family hx, Social hx reviewed Medications reviewed; pending reconciliation Home Medications Medication Instructions Recorded Latanoprost 0.005% Eye Drops 1 drop OU HS 06/05/18 [Xalatan 0.005% Eye Drops -] Amlodipine Besylate [Norvasc -] 5 mg PO DAILY #30 tablet 06/06/18 Topiramate [Topamax] 50 mg PO BID 06/22/18 Cabergoline 0.25 mg PO BID 11/20/18 Cetirizine HCl [Zyrtec -] 10 mg PO DAILY PRN 11/20/18 OBJECTIVE: VS, labs, imaging reviewed NAD, AAO, resting in bed NC AT EOMI PERRLA RRR s1/2 no mgr Lungs CTAB, w/ sym exp NT ND +BS CN2-12 wnl, no fnd Normal mood, appropriate behavior CT head prelim read negative EKG reviewed FOBT positive; H/H 13/39 which is normal and her baseline; slight hyperglycemia at 144 ASSESSMENT AND PLAN: Patient presents with presyncope and transient CP; she is found to have likely acute cystitis and admits to some BRBPR with hx hemorrhoids and normal Hb 1) Presyncope -No LOC; dizziness not associated with tinnitus, hearing loss, falls. -Checking telemetry, checking echo. Checking orthostatics. No stereotyped vertigo symptoms. -CT head negative; does have history of pituitary adenoma on cabergoline; consider further investigation of neurogenic component (should check old records in AM if decide to take this route). MRI from ~6 months ago reviewed. -UA borderline + with sx of urinary frequency so will empirically cover with ceftriaxone and followup culture; this likely contributed to her sx. 2) Chest Pain -CP free now; was planned to see CV as outpt but has not. Will monitor tele, trend troponin. Check echo for wmas. Consult CV and will defer further need for testing to them. ASA 81 PO QD for primary prophylaxis. Check TSH, A1c, Lipids. 3) Acute Cystitis -Could have contributed to #1; IV ceftriaxone and followup cultures. 4) HTN -Monitor and control; continue norvasc 5) BRBPR with external hemorrhoids -Likely hemorrhoidal. No need for IV PPI. Hb higher than it has been in past and is wnl. She is not having active bleeding. Trend CBC. Consider GI consultation. FOBT positive. Resident completed rectal exam. 6) Pituitary Adenoma -Patient of Dr Willoughby; was seen here in 05/2018 and she was not taking meds at that time. Was taking meds at this time. Consider calling to discuss nonurgently. Should mention was on topamax (Dr. Lowery' note from 06/17 says taking for weight loss?). Verify with pharmacy all medications and complaince. PENNY -SMILEY@75 -PRN BMP -NPO -As tolerated Full Code
[2018-11-21] MEDS: SODIUM CHLORIDE 1,000 ML IV SCH (01:14)
[2018-11-21 06:41] LABS: BASO % 0.6 % (0-2.0); EOS % 0.9 % (0-4.5); HEMATOCRIT 34.1 % (32.4-45.2); HEMOGLOBIN 11.6 GM/dL (10.7-15.3); LYMPH % 21.7 % (8-40); MCH 29.9 pg (25.7-33.7); MCHC 33.9 g/dl (32.0-36.0); MEAN PLT VOLUME 9.4 fl (7.5-11.1); MONO % 5.7 % (3.8-10.2); NEUT % 71.1 % (42.8-82.8); PLATELET COUNT 240 K/MM3 (134-434); RBC 3.87 M/mm3 (3.60-5.2); RDW 14.4 % (11.6-15.6); WHITE BLOOD COUNT 6.6 K/mm3 (4.0-10.0)
[2018-11-21 07:06] LABS: ALBUMIN 3.3 g/dl (3.4-5.0); ALK PHOS 79 U/L (45-117); ANION GAP 6 MMOL/L (8-16); BILIRUBIN,TOTAL 0.2 mg/dL (0.2-1); BLOOD UREA NITROGEN 18 mg/dL (7-18); CALCIUM 8.4 mg/dL (8.5-10.1); CHLORIDE 113 mmol/L (98-107); CO2 21 mmol/L (21-32); CREATININE 0.7 mg/dL (0.55-1.3); GLUCOSE,RANDOM 104 mg/dL (74-106); MAGNESIUM 2.4 mg/dL (1.8-2.4); PHOSPHOROUS 3.8 mg/dL (2.5-4.9); POTASSIUM 3.8 mmol/L (3.5-5.1); SGOT/AST 11 U/L (15-37); SGPT/ALT 19 U/L (13-61); SODIUM 140 mmol/L (136-145); TOT PROT 7.2 g/dl (6.4-8.2)
[2018-11-21] MEDS ORDERED: CEFTRIAXONE 1 GM in DEXTROSE 5%-WATER - 50 ML IVPB SCH (10:00)
[2018-11-21] MEDS: ASPIRIN 81 MG CHEWABLE TABLETS PO SCH (10:00)
--- NOTE | 2018-11-21 10:25 | PN ---
Progress Note (short form) - Note Progress Note: Subjective: denies any fever or chills, has no dysuria or abd pain or flank pain . has frequency in urinating fo ryears, not new. h describes cp fo r1 second in L upper chest while showering yesterday morning. resolved spontaneously . at work while walking felt lightheaded and about to faint but slightly improved when she sat down. 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 she reprots one episode of cp inpast f rwhich she went to OSH , at that time her cp was sharp in middle of her chest. she denies echo or stress test in past. reports taking cabergoline once weekly instead of twice weekly as prescribed by Dr. dc. Objective: Vital Signs: Last Vital Signs Temp Pulse Resp BP Pulse Ox 98.4 F 67 18 117/50 L 98 11/21/18 07:26 11/21/18 07:26 11/21/18 07:26 11/21/18 07:26 11/21/18 07:26 Laboratory Results - last 24 hr 11/20/18 11/20/18 11/20/18 18:06 18:06 18:42 WBC 10.4 H RBC 4.42 Hgb 13.3 Hct 39.0 MCV 88.3 MCH 30.1 D MCHC 34.1 RDW 14.6 D Plt Count 251 D MPV 9.5 Absolute Neuts (auto) 8.7 H Neutrophils % 83.1 H D Lymphocytes % 12.5 D Monocytes % 3.4 L Eosinophils % 0.5 D Basophils % 0.5 Nucleated RBC % 0 Sodium 138 Potassium 3.7 Chloride 106 Carbon Dioxide 22 Anion Gap 10 BUN 13 Creatinine 0.9 Creat Clearance w eGFR 65.25 Random Glucose 144 H Hemoglobin A1c % Calcium 9.0 Phosphorus Magnesium Total Bilirubin 0.2 AST 17 ALT 22 Alkaline Phosphatase 95 Creatine Kinase 119 Troponin I < 0.02 Total Protein 8.2 Albumin 3.9 Triglycerides Cholesterol Total LDL Cholesterol HDL Cholesterol TSH 1.67 Urine Color Urine Appearance Urine pH Ur Specific [place] Urine Protein Urine Glucose (UA) Urine Ketones Urine Blood Urine Nitrite Urine Bilirubin Urine Urobilinogen Ur Leukocyte Esterase Urine WBC (Auto) Urine RBC (Auto) Urine Casts (Auto) U Epithel Cells (Auto) Urine Bacteria (Auto) Stool Occult Blood Positive 11/20/18 11/21/18 11/21/18 18:50 01:20 06:30 WBC RBC Hgb Hct MCV MCH MCHC RDW Plt Count MPV Absolute Neuts (auto) Neutrophils % Lymphocytes % Monocytes % Eosinophils % Basophils % Nucleated RBC % Sodium 140 Potassium 3.8 Chloride 113 H Carbon Dioxide 21 Anion Gap 6 L BUN 18 Creatinine 0.7 Creat Clearance w eGFR 87.20 Random Glucose 104 Hemoglobin A1c % Calcium 8.4 L Phosphorus 3.8 Magnesium 2.4 Total Bilirubin 0.2 AST 11 L ALT 19 Alkaline Phosphatase 79 Creatine Kinase Troponin I < 0.02 < 0.02 Total Protein 7.2 Albumin 3.3 L Triglycerides Cholesterol Total LDL Cholesterol HDL Cholesterol TSH Urine Color Yellow Urine Appearance Turbid Urine pH 8.0 Ur Specific [place] 1.011 Urine Protein Negative Urine Glucose (UA) Negative Urine Ketones Negative Urine Blood Negative Urine Nitrite Negative Urine Bilirubin Negative Urine Urobilinogen 0.2 Ur Leukocyte Esterase Trace Urine WBC (Auto) 3 Urine RBC (Auto) 1 Urine Casts (Auto) 0 U Epithel Cells (Auto) 2.0 Urine Bacteria (Auto) 68.4 Stool Occult Blood 11/21/18 11/21/18 11/21/18 06:30 06:30 06:30 WBC 6.6 RBC 3.87 Hgb 11.6 Hct 34.1 MCV 88.0 MCH 29.9 MCHC 33.9 RDW 14.4 Plt Count 240 MPV 9.4 Absolute Neuts (auto) 4.7 Neutrophils % 71.1 Lymphocytes % 21.7 D Monocytes % 5.7 Eosinophils % 0.9 Basophils % 0.6 Nucleated RBC % 0 Sodium Potassium Chloride Carbon Dioxide Anion Gap BUN Creatinine Creat Clearance w eGFR Random Glucose Hemoglobin A1c % 5.4 Calcium Phosphorus Magnesium Total Bilirubin AST ALT Alkaline Phosphatase Creatine Kinase Troponin I Total Protein Albumin Triglycerides 128 Cholesterol 170 Total LDL Cholesterol 97 HDL Cholesterol 54 TSH 1.53 Urine Color Urine Appearance Urine pH Ur Specific [place] Urine Protein Urine Glucose (UA) Urine Ketones Urine Blood Urine Nitrite Urine Bilirubin Urine Urobilinogen Ur Leukocyte Esterase Urine WBC (Auto) Urine RBC (Auto) Urine Casts (Auto) U Epithel Cells (Auto) Urine Bacteria (Auto) Stool Occult Blood Physical Exam: NAD awake, alert, cooperative . MMM, no JVD CV: RRR, no MRG , No JVD Lungs: CTAB ext : no edema or erythema. Abd , obese , soft, ND, NT, NL BS . Neuro: EOMI, no facial droop, round equal pupils, reactive to light , tongue at mid line, strength 5/5 in upper and lower extremities proximally and distally. sensation to light touch nL. Assessment/Plan: 53 y/o ladyw tihh/o HTN, Asthma, pituitary adenioma, who presented with Cp and near syncope 1- Presyncope: might be vasovagal vs orthostatic hypotension per history. - check orthostatic VS - give IVF - tele monitoring - Echo . - no need for further neurological imaging 2- CP : atypical per prescription . EKG with sinus rhythm, L axis , flat T in III, Qtc 426. trop neg x 3 - monitor on tele - case d/w Dr. Hutton , will benefit form stress test - follow echo - LDL 97. No need for medical therapy as 10 yr risk per framingham risk score is 0.9 %. 3- H/o HTN: cont her norvasc 4- h/o Pituitry adenoma. supposed to be on cabergoline twice weekly but she takes it once weekly. taken today . - f/u with neuro as out pt - MRI 06/17 reviewed, little prominance of L pituitary gland. 5- h/o asthma, LAbuterol PRN DVT PX Visit type - Emergency Visit Emergency Visit: Yes ED Registration Date: 11/20/18 Care time: The patient presented to the Emergency Department on the above date and was hospitalized for further evaluation of their emergent condition. - New Patient This patient is new to me today: Yes Date on this admission: 11/21/18 - Critical Care Critical Care patient: No
[2018-11-21] MEDS: ENOXAPARIN NA (PORCINE) 40 MG/0.4 ML DISP.SYRIN SQ SCH (11:11)
[2018-11-21] MEDS: amLODIPine BESYLATE 5 MG TABLET (FP) PO SCH (11:11)
[2018-11-21] MEDS: CABERGOLINE 0.25 MG PO SCH ×2 (11:12→11:13)
[2018-11-21] MEDS: TOPIRAMATE 25 MG TABLET (FP) PO SCH ×2 (11:12→21:40)
[2018-11-21] MEDS ORDERED: LORATADINE 10 MG TABLET ONE (17:23)
--- NOTE | 2018-11-21 18:25 | CONSULT ---
Consult - text type - Consultation Consultation Note: NEUROLOGY CONSULTATION is greatly appreciated: Events reviewed and discussed with Dr. Lynch who requested this consultation. This 53 yo RH woman with h/o HTN, Asthma on Amlodipine. Well-known to me over many years with Migraine headaches, Restless Limbs syndrome (RLS) and Pituitary adenoma (Prolactinoma). Also followed by Dr. Mamta Mims who recently found normal prolactin and suggested D/C of Carbergoline which patient did not do because of control of RLS Headaches are well-controlled on Topiramate (50 BID) and she takes Cabergoline ( a DA agonist) for BOTH RLS and the Pituitary adenoma. Over the last week she has also noted BRBPR attributed to hemorrhoids. Today, pt experienced chest pain followed by lightheadedness. In ER BP was 90/ 50. CT of head (reviewed, but not yet reported): Normal study Pt now feels "fine" with BP 136/80 and "wants to go home." ОЛЬГА: No bruits. Cor reg. Mod obese. NEURO: MS/speech: Normal CN II-XII: normal including monocular and binocular visual yepez. Motor: No drift or tremor. Normal strength, tone, bulk and reflexes Coord: No FTN dystaxia Sensory: Normal IMP: Presyncope associated with hypotension. Meds (amlodipine and cabergoline) and possible GI bleed. Migraine Headaches Restless Limbs Syndrome Pituitary adenoma SUGGEST: Telemetry. Orthostatic BP. Cardiac eval as per Dr. Lynch Decrease amlodipine and/or cabergoline if hypotension persists Continue Topiramate 50 mg BID for migraine prophylaxis. Thank you very much, Juan Luis Guo MD
[2018-11-21 19:45] VITALS: BMI 34.2
[2018-11-21] MEDS ORDERED: PT OWN MED DRAWER 7, Y5N ONE (21:13)
[2018-11-21] MEDS ORDERED: LATANOPROST 0.005% OPHTH SOLN 2.5ML BOTTLE OU SCH (22:00)
--- NOTE | 2018-11-21 23:51 | EKG ---
Test Reason : Blood Pressure : / mmHG Vent. Rate : 075 BPM Atrial Rate : 075 BPM P-R Int : 116 ms QRS Dur : 070 ms QT Int : 382 ms P-R-T Axes : 016 -06 015 degrees QTc Int : 426 ms NORMAL SINUS RHYTHM NONSPECIFIC T WAVE ABNORMALITY ABNORMAL ECG WHEN COMPARED WITH ECG OF 05-JUN-2018 00:36, NO SIGNIFICANT CHANGE WAS FOUND Confirmed by MARISA RUIZ MD ([id number]) on 11/21/2018 11:50:48 PM Referred By: Confirmed By:MARISA RUIZ MD
--- NOTE | 2018-11-22 03:41 | CON.CARD ---
Consult Consult Specialty:: cardiology Reason for Consultation:: chest pain; multiple CAD risks - History of Present Illness Chief Complaint: Pt A&Ox3; no chest pain presently. History of Present Illness: The patient is a 53-year-old black female with a past medical history significant for HTN, migraine headaches, tumor of the pituitary gland ( prolactinoma), pre-DM, obesity, Asthma (never been intubated), Restless Legs Syndrome, chronic bilateral ankle swelling, who presents to the emergency department with chest pain and dizziness. The patient reports she woke up at her usual state of health. 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 Denies shortness of breath. No prior stress test, coronary angiogram, or echo. The patient reports a family history of [place] (brother in his 50s). She has been to ERs before for chest pain. Allergies: Iodine. Surgical history: Umbilical hernia with mesh, bilateral bunionectomy at 17 years old, and left breast lumpectomy (benign). Neurologist: Dr. Guo. PMD: Dr. Arnulfo Quijano. sugar sampler: Dr. Delarosa Family history: [place] (brother) - History Source History Provided By: Patient, Medical Record Limitations to Obtaining History: No Limitations - Past Medical History Cardio/Vascular: Yes: HTN Pulmonary: Yes: Asthma Gastrointestinal: Yes: Hemorrhoids Reproductive: Yes: Postmenopausal ...: No - Past Surgical History Past Surgical History: Yes: Hernia Repair - Alcohol/Substance Use Hx Alcohol Use: No History of Substance Use: reports: None - Smoking History Smoking history: Never smoked Have you smoked in the past 12 months: No - Social History ADL: Independent History of Recent Travel: No Home Medications - Allergies Allergies/Adverse Reactions: Allergies Allergy/AdvReac Type Severity Reaction Status Date / Time iodine Allergy Verified 11/20/18 16:51 - Home Medications Home Medications: Ambulatory Orders Latanoprost 0.005% Eye Drops [Xalatan 0.005% Eye Drops -] 1 drop OU HS 06/05/18 Amlodipine Besylate [Norvasc -] 5 mg PO DAILY #30 tablet 06/06/18 Topiramate [Topamax] 50 mg PO BID 06/22/18 Cabergoline 0.25 mg PO WEEKLY 11/20/18 Cetirizine HCl [Zyrtec -] 10 mg PO DAILY PRN 11/20/18 EPINEPHrine [Primatene Mist] 11.7 gm IH TID PRN 11/21/18 Family Disease History - Family Disease History Family Disease History: Heart Disease: Father (ESRD), Brother (ESRD; [place] in his 50s), Sister, Other: Father, Brother Vital Signs: Vital Signs Temperature 98.3 F 11/22/18 02:00 Pulse Rate 73 11/22/18 02:00 Respiratory Rate 18 11/22/18 02:00 Blood Pressure 124/74 11/22/18 02:00 O2 Sat by Pulse Oximetry (%) 98 11/21/18 23:54 - Other Data Labs, Other Data: CBC, BMP 11/21/18 06:30 11/21/18 06:30 Troponin, BNP 11/21/18 06:30 Troponin I < 0.02 Troponin, BNP 11/21/18 06:30 Troponin I < 0.02 Problem List - Problems (1) Obesity Code(s): E66.9 - OBESITY, UNSPECIFIED (2) Chest pain Assessment/Plan: Pulsating chest pain at rest. Multiple CAD risks, including HTN, obesity, sedentary lifestyle, postmenopausal. TNI < 0.02 x 3. For stress treadmilll test. Code(s): R07.9 - CHEST PAIN, UNSPECIFIED Qualifiers: Chest pain type: unspecified Qualified Code(s): R07.9 - Chest pain, unspecified (3) Dizziness Code(s): R42 - DIZZINESS AND GIDDINESS (4) Pituitary adenoma Assessment/Plan: Prolactinoma f/u with health care recruiter. Code(s): D35.2 - BENIGN NEOPLASM OF PITUITARY GLAND (5) Rectal bleed Code(s): K62.5 - HEMORRHAGE OF ANUS AND RECTUM (6) Headache Assessment/Plan: Treatment per neurolotist (Dr. Guo). Code(s): R51 - HEADACHE Qualifiers: Headache type: other headache syndrome Qualified Code(s): G44.89 - Other headache syndrome (7) Restless leg syndrome Assessment/Plan: medicatios, recommendations per neurologist noted. Code(s): G25.81 - RESTLESS LEGS SYNDROME
[2018-11-22] MEDS: SODIUM CHLORIDE 1,000 ML IV SCH (05:42)
--- NOTE | 2018-11-22 12:00 | ECHO ---
Name: EVITA PALOMINO Exam:Adult Echocardiogram Study Date: 11/22/2018 08:30 AM Age: 53 yrs Reason For Study: PRE-SYNCOPE Height: 63 in Weight: 195 lb BSA: 1.9 m2 MMode/2D Measurements & Calculations IVSd: 0.89 cm Ao root diam: 2.7 cm LVIDd: 4.6 cm LA dimension: 3.2 cm LVIDs: 2.8 cm LVPWd: 0.96 cm EDV(Teich): 98.0 ml LVOT diam: 2.0 cm ESV(Teich): 30.7 ml Doppler Measurements & Calculations MV E max raciel: 91.8 cm/sec Ao V2 max: 143.2 cm/sec MV A max raciel: 52.8 cm/sec Ao max P.2 mmHg MV E/A: 1.7 Ao V2 mean: 88.6 cm/sec MV dec time: 0.21 sec Ao mean P.8 mmHg Ao V2 VTI: 29.0 cm TR max raciel: 247.1 cm/sec Med Peak E' Raciel: 8.5 cm/sec TR max P.5 mmHg Med E/e': 10.9 Lat Peak E' Raciel: 11.1 cm/sec Lat E/e': 8.3 Procedure A complete two-dimensional transthoracic echocardiogram was performed (2D, M-mode, Doppler and color flow Doppler). Left Ventricle The left ventricle is normal in size. Left ventricular systolic function is normal. Ejection Fraction = 65- 70%. No regional wall motion abnormalities noted. Right Ventricle The right ventricle is normal size. The right ventricular systolic function is normal. RV systolic TD I is 13 cm/s. Atria The left atrial size is normal. Right atrial size is normal. Mitral Valve The mitral valve is normal in structure and function. There is mild mitral regurgitation. Tricuspid Valve The tricuspid valve is normal in structure and function. There is mild to moderate tricuspid regurgit ation. Pulmonary artery systolic pressure is at least 30 mmHg if RA pressure is assumed 3 mmHg. Aortic Valve The aortic valve is normal in structure and function. No aortic regurgitation is present. Pulmonic Valve The pulmonic valve is not well visualized. Great Vessels The aortic root is normal size. Pericardium/Pleura There is no pericardial effusion. Interpretation Summary The left ventricle is normal in size. Left ventricular systolic function is normal. No regional wall motion abnormalities noted. Ejection Fraction = 65-70%. The right ventricular systolic function is normal. The left atrial size is normal. Right atrial size is normal. There is mild mitral regurgitation. There is mild to moderate tricuspid regurgitation. Pulmonary artery systolic pressure is at least 30 mmHg if RA pressure is assumed 3 mmHg There is no pericardial effusion. Previous study is not available for comparison Kumar Prado MD 11/22/2018 12:00 PM
--- NOTE | 2018-11-22 12:01 | PN ---
Progress Note, Physician - Current Medication List Current Medications: Active Medications Amlodipine Besylate (Norvasc -) 5 mg PO DAILY [facility] Last Admin: 11/21/18 11:11 Dose: Not Given Aspirin (Asa -) 81 mg PO DAILY [facility] Last Admin: 11/21/18 10:00 Dose: 81 mg Enoxaparin Sodium (Lovenox -) 40 mg SQ DAILY [facility] Last Admin: 11/21/18 11:11 Dose: 40 mg Sodium Chloride (Normal Saline -) 1,000 mls @ 75 mls/hr IV ASDIR [facility] Last Admin: 11/22/18 05:42 Dose: 75 mls/hr Latanoprost (Xalatan 0.005% Eye Drops -) 1 drop OU HS [facility] Last Admin: 11/21/18 21:40 Dose: 1 drop Loratadine (Claritin -) 10 mg PO DAILY PRN PRN Reason: SEASONAL ALLERGIES Topiramate (Topamax -) 50 mg PO BID [facility] Last Admin: 11/21/18 21:40 Dose: 50 mg - Objective Vital Signs: Vital Signs Temperature 98.3 F 11/22/18 02:00 Pulse Rate 71 11/22/18 06:00 Respiratory Rate 18 11/22/18 02:00 Blood Pressure 131/70 11/22/18 06:00 O2 Sat by Pulse Oximetry (%) 98 11/22/18 07:00 Eyes: Yes: WNL, Conjunctiva Clear, EOM Intact HENT: Yes: WNL, Atraumatic, Normocephalic Neck: Yes: WNL, Supple, Trachea Midline Cardiovascular: Yes: WNL, Regular Rate and Rhythm Respiratory: Yes: WNL, Regular, CTA Bilaterally Gastrointestinal: Yes: WNL, Normal Bowel Sounds Genitourinary: Yes: WNL Musculoskeletal: Yes: WNL Extremities: Yes: WNL Edema: No Integumentary: Yes: WNL Neurological: Yes: WNL, Alert, Oriented ...Motor Strength: WNL Psychiatric: Yes: WNL Labs: CBC, BMP 11/21/18 06:30 11/21/18 06:30 Assessment/Plan - Problems (1) Obesity Code(s): E66.9 - OBESITY, UNSPECIFIED (2) Chest pain Assessment/Plan: Pulsating chest pain at rest. Multiple CAD risks, including HTN, obesity, sedentary lifestyle, postmenopausal. TNI < 0.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 Code(s): D35.2 - BENIGN NEOPLASM OF PITUITARY GLAND (5) Rectal bleed Code(s): K62.5 - HEMORRHAGE OF ANUS AND RECTUM (6) Headache Assessment/Plan: Treatment per neurolotist (Dr. Guo). Code(s): R51 - HEADACHE Qualifiers: Headache type: other headache syndrome Qualified Code(s): G44.89 - Other headache syndrome (7) Restless leg syndrome Assessment/Plan: medicatios, recommendations per neurologist noted. Code(s): G25.81 - RESTLESS LEGS SYNDROME
[2018-11-22] MEDS ORDERED: PT OWN MED DRAWER 7, Y5N ONE ×2 (12:24→18:40)
[2018-11-22] MEDS: ENOXAPARIN NA (PORCINE) 40 MG/0.4 ML DISP.SYRIN SQ SCH (12:25)
[2018-11-22] MEDS: TOPIRAMATE 25 MG TABLET (FP) PO SCH (12:26)
[2018-11-22] MEDS: ASPIRIN 81 MG CHEWABLE TABLETS PO SCH (12:26)
[2018-11-22] MEDS: amLODIPine BESYLATE 5 MG TABLET (FP) PO SCH (12:26)
[2018-11-22 13:52] VITALS: BP 123/72; PULSE 87; TEMP 98
--- NOTE | 2018-11-22 14:12 | PN ---
Progress Note (short form) - Note Progress Note: NEUROLOGY PROGRESS: Events reviewed, patient examined. No further reports of "dizziness." S/P stress-test, awaiting results. Reports headaches well controlled on topiramate 50 mg BID, but "sometimes" may forget a dose. Carbergoline discontinued at this time due to hypotension. No reports of worsening pains in legs or insomnia at this time. Occult found pos for blood. H/H 11.6/34.1 MCV 88.0 ОЛЬГА: 128/78 supine, 132/83 sitting, 131/70 without orthostatic changes. NEURO: MS/speech: Normal CN II-XII: normal including monocular and binocular visual yepez. Motor: No drift or tremor. Normal strength, tone, bulk and reflexes Coord: No FTN dystaxia Sensory: Normal IMP: Presyncope associated with hypotension Migraine Headaches Restless Limbs Syndrome (with possible contribution of Iron Def anemia) Pituitary adenoma Suggest: Observe off cabergoline at this time Check Fe++, TIBC and Ferritin Discussed with pt improved adherence to topiramate by taking 2, 50 mg tabs once daily (ie: qHS). Neuro f/u as out-patient for migraines and RLS Thank you very much, Juan Luis Guo MD
--- NOTE | 2018-11-22 14:47 | PN ---
Teaching Attending Note Name of Resident: Nelson Schwab ATTENDING PHYSICIAN STATEMENT I saw and evaluated the patient. I reviewed the resident's note and discussed the case with the resident. I agree with the resident's findings and plan as documented. SUBJECTIVE: No fever or chills. No abd pain. no bleeding in hospital . reports dicomfort and bleeding form external hemorrhoids for past 2 weeks, when she became constipated and had some straining. wasseen by GI inpast and after colonoscopy last year, hemorrhoids stopped to bleed., and no intervention was done. denies any light headedness or syncope while here OBJECTIVE: NAD awake, alert, cooperative .MMM CV: RRR, no MRG , No JVD Lungs: CTAB Ext: no edema or erythema. Abd , obese , soft, ND, NT, NL BS. Rectal: nl hair distribution . external hemorrhoids . digital exam with no masses, or internal hemorrhoids. stool felt in vault. brown stool on examiner finger , tested for OB and came back Neg Assessment/Plan: 53 y/o lady with h/o HTN, Asthma, pituitary adenioma ( prolactinoma),external hemorrhoids , and restless leg syndrome , who presented with Cp and near syncope 1- Presyncope: might be vasovagal vs orthostatic hypotension - orthostatic VS neg but done after IVF administration - Echo reviewed. . 2- CP : atypical . stress test neg for ischemia - LDL 97. No need for medical therapy as 10 yr risk per framingham risk score is 0.9 %. 3- H/o HTN: cont her norvasc 4- h/o Pituitry adenoma/prolactinoma . cabergoline dc's per neuro 5- rectal bleed. likely external hemorrhoids with recent constipation . , did not recur in house. stable Hb. rectal exam with neg stool OB . she will follow with GI as outpt . she would like to be referred . will send to Dr. Rendon . bowel regimen dispo : DC home
[2018-11-22 14:53] LABS: HEMATOCRIT 36.8 % (32.4-45.2); HEMOGLOBIN 12.6 GM/dL (10.7-15.3); MCH 30.8 pg (25.7-33.7); MCHC 34.3 g/dl (32.0-36.0); MEAN CELL VOLUME 89.7 fl (80-96); MEAN PLT VOLUME 9.4 fl (7.5-11.1); PLATELET COUNT 229 K/MM3 (134-434); RBC 4.11 M/mm3 (3.60-5.2)
--- NOTE | 2018-11-22 15:44 | DS ---
Physical Exam: SUBJECTIVE: Patient seen and examined at bedside. Denies chest pain or shortness of breath. at bedside. OBJECTIVE: Vital Signs Period Temp Pulse Resp BP Sys/Carvalho Pulse Ox Last 24 Hr 98 F-98.4 F 64-87 16-20 110-132/59-83 98-98 PHYSICAL EXAM GENERAL: AAOX3 NAD HEAD: Normal with no signs of trauma. EYES: EOMI Sclera Clear ENT: MMM NECK: Trachea midline, full range of motion, supple. LUNGS:CTAB HEART: RRR nl S1S2 ABDOMEN: Soft NDNT EXTREMITIES: No CCE NEUROLOGICAL: Cranial nerves II through XII grossly intact. PSYCH: Normal mood, normal affect. LABS Laboratory Results - last 24 hr 11/22/18 11/22/18 08:32 14:35 WBC 9.0 RBC 4.11 Hgb 12.6 Hct 36.8 MCV 89.7 MCH 30.8 MCHC 34.3 RDW 15.0 Plt Count 229 MPV 9.4 Serum , Qual Negative HOSPITAL COURSE: Date of Admission:11/20/18 53 y/o lady with h/o HTN, Asthma, pituitary adenoma (prolactinoma), external hemorrhoids , and restless leg syndrome who presented with CP and near syncope. Troponins were negative x3. CT head negative. EKG revealed sinus rhythm, L axis , flat T in III, and a Qtc of 426. Pt also endorsed symptoms of urinary frequency and was empirically treated with ceftriaxone. Cardiology was consulted , Dr Hutton, who recommended pt undergo a nuclear stress test in light of her sedentary lifestyle, obesity, and hypertension. Nuclear stress test was negative and pt was noted to have an EF of 74% at stress and 76% at rest. Neurology DC'ed pt's cabergoline as known to cause hypotension and dizziness in some circumstances. Pt was also referred to [facility] as endorsed h/o rectal bleeding though no bleeding was appreciated on this hospital visit. Date of Discharge: 11/22/18 Minutes to complete discharge: 35 Discharge Summary Reason For Visit: DIZZINESS/RECTAL HEMORRHAGE Current Active Problems Chest pain (Acute) Dizziness (Acute) Rectal bleed (Acute) Obesity (Chronic) Pituitary adenoma (Chronic) Restless leg syndrome (Chronic) Condition: Improved - Instructions Diet, Activity, Other Instructions: You presented to the hospital due to chest pain and dizziness. Please STOP taking Cabergoline Please follow up with the Forest Management Teacher, Dr Sánchez Hutton. A referral has been provided for you in your discharge papers. you might need a prolonged cardiac monitoring. Please follow up with the neurologist Dr Juan Luis Guo. You Topiramate should be taken 100 mg ONCE daily. A Prescription has been sent to your pharmacy. Please follow up with Dr Rendon, the Health Information Assistant for your rectal bleeding and hemorrhoids. A referral has been provided for you in your discharge paper work. avoid constipation . bowel regimen added. prescriptions have been sent to your pharmacy Please return to the ED if you begin to experience rectal bleeding, chest pain, nausea/vomiting, dizziness, difficulty breathing or any other abnormal symptom. Referrals: Juan Luis Guo MD [Staff Physician] - Shea Rendon DO [Staff Physician] - Sánchez Hutton MD [Staff Physician] - Disposition: HOME - Home Medications Comprehensive Discharge Medication List: Ambulatory Orders Latanoprost 0.005% Eye Drops [Xalatan 0.005% Eye Drops -] 1 drop OU HS 06/05/18 Amlodipine Besylate [Norvasc -] 5 mg PO DAILY #30 tablet 06/06/18 Cetirizine HCl [Zyrtec -] 10 mg PO DAILY PRN 11/20/18 EPINEPHrine [Primatene Mist] 11.7 gm IH TID PRN 11/21/18 Docusate Sodium [Colace -] 100 mg PO DAILY #30 capsule 11/22/18 Sennosides [Senna] 8.6 mg PO BID #30 tablet 11/22/18 Topiramate [Qudexy Xr] 100 mg PO DAILY #30 cap.spr.24 11/22/18 This patient is new to me today: Yes Date on this admission: 11/22/18 Emergency Visit: Yes ED Registration Date: 11/20/18 Care time: The patient presented to the Emergency Department on the above date and was hospitalized for further evaluation of their emergent condition. Critical Care patient: No - Discharge Referral Referred to [facility] Med P.C.: No
[2018-11-24 08:08] LABS: SERUM IRON SATURATION 10 % (15-55); TOTAL IRON BINDING CAPACITY 398 ug/dL (250-450); UIBC 360 ug/dL (131-425)
--- NOTE | 2018-12-04 14:24 | EKG ---
Test Reason : Blood Pressure : / mmHG Vent. Rate : 076 BPM Atrial Rate : 076 BPM P-R Int : 108 ms QRS Dur : 070 ms QT Int : 376 ms P-R-T Axes : 021 -13 004 degrees QTc Int : 423 ms SINUS RHYTHM WITH SHORT NM OTHERWISE NORMAL ECG WHEN COMPARED WITH ECG OF 20-NOV-2018 16:52, T WAVE INVERSION NO LONGER EVIDENT IN ANTERIOR LEADS Confirmed by MARISA RUIZ MD ([id number]) on 12/04/2018 2:24:30 PM Referred By: Confirmed By:MARISA RUIZ MD
== END 2018-11-22 18:46 | disposition home or self-care (01) ==
LOC: JER 16:50 → JERBED 21:08 → J4S 11-21 18:52
PROVIDERS: ADMIT Internal Medicine; ATTEND Internal Medicine
PROC: 3E03329 Introduction of Other Anti-infective into Peripheral Vein, Percutaneous Approach (ICD-10-PCS; principal; 2018-11-20)
PROC: 3E0337Z Introduction of Electrolytic and Water Balance Substance into Peripheral Vein, Percutaneous Approach (ICD-10-PCS; 2018-11-20)
PROC: 3E033GC Introduction of Other Therapeutic Substance into Peripheral Vein, Percutaneous Approach (ICD-10-PCS; 2018-11-20)
PROC: 3E013GC Introduction of Other Therapeutic Substance into Subcutaneous Tissue, Percutaneous Approach (ICD-10-PCS; 2018-11-20)
DX: K62.5 Hemorrhage of anus and rectum (principal); R07.89 Other chest pain; R55 Syncope and collapse; R42 Dizziness and giddiness; D35.2 Benign neoplasm of pituitary gland; I10 Essential (primary) hypertension; R73.03 Prediabetes; J45.909 Unspecified asthma, uncomplicated; N30.00 Acute cystitis without hematuria; E66.9 Obesity, unspecified; Z68.34 Body mass index [BMI] 34.0-34.9, adult; G25.81 Restless legs syndrome
CPT/HCPCS: 36415; 70450-TC; 78452-TC; 80053; 80061; 81003; 82272; 82550; 83036; 83540; 83550; 83721; 83735; 84100; 84443; 84484; 84703; 85025; 85027; 87086; 93005; 93010; 93017; 93306-TC; 99285-25; A9502; G0378; J7030

== ENCOUNTER 2020-09-24 15:30 | Emergency (ER) | payer OTHER ==
[2020-09-24 15:59] VITALS: BP 143/69; PULSE 88; TEMP 97.7; BMI 27.3
== END 2020-09-24 21:09 | disposition home or self-care (01) ==
LOC: JER 15:30
DX: R06.02 Shortness of breath (principal)
CPT/HCPCS: 71046-TC-FY; 99284-25; C9803; U0003

== ENCOUNTER 2022-01-30 19:14 | Emergency (ER) | payer OTHER ==
[2022-01-30 19:37] VITALS: BP 126/83; PULSE 78; TEMP 98.3; BMI 35.0
[2022-01-30] MEDS ORDERED: ACETAMINOPHEN 500 MG TABLET (FP) PO ONE (20:41)
[2022-01-30] MEDS ORDERED: ACETAMINOPHEN 325 MG TABLET (FP) ONE (20:46)
== END 2022-01-31 00:42 | disposition home or self-care (01) ==
LOC: JER 19:14
DX: R07.9 Chest pain, unspecified (principal); W01.0XXA Fall on same level from slipping, tripping and stumbling without subsequent striking against object, initial encounter
CPT/HCPCS: 71046-TC-FY; 71101-TC-RT-FY; 93005; 93010; 99285-25

== ENCOUNTER 2022-02-01 12:44 | Emergency (ER) | payer OTHER ==
[2022-02-01 13:03] VITALS: BP 143/83; PULSE 84; TEMP 98.3; BMI 35.4
[2022-02-01] MEDS ORDERED: METHOCARBAMOL 500 MG TABLET PO ONE (14:40)
[2022-02-01] MEDS ORDERED: KETOROLAC TROMETHAMINE 15 MG/ML VIAL IM ONE (14:40)
[2022-02-01] MEDS ORDERED: METHOCARBAMOL 500 MG TABLET ONE (14:59)
[2022-02-01] MEDS ORDERED: KETOROLAC TROMETHAMINE 15 MG/ML VIAL ONE (14:59)
== END 2022-02-01 15:50 | disposition home or self-care (01) ==
LOC: JERFT 12:44
PROC: 3E0233Z Introduction of Anti-inflammatory into Muscle, Percutaneous Approach (ICD-10-PCS; principal; 2022-02-01)
DX: S20.211A Contusion of right front wall of thorax, initial encounter (principal); R07.82 Intercostal pain; W01.0XXA Fall on same level from slipping, tripping and stumbling without subsequent striking against object, initial encounter
CPT/HCPCS: 99284-25